=== PATIENT | female | born 1950 | race Caucasian/White ===

== ENCOUNTER 2023-08-14 14:30 | Outpatient (AMB) | payer OTHER, SELFPAY ==
--- NOTE | 2023-08-14 15:10 | MHC.PC.OV ---
Vital Signs 08/14/23 15:19 Height 5 ft 3 in Weight 197 lb BMI 34.9 BP 118/88 Blood Pressure Location Lt brachial Position Sitting Respiration 14 Pulse 64 Pulse Source Pulse Oximeter Temp 99.1 F Temp Source Oral Pulse Oximetry (%) 94 Oxygen Delivery Method Room Air Intake Visit Reasons: Establish Care Intake Note: New patient visit Gold And Silver Assayer Required: No Allergies codeine Allergy (Verified 08/14/23 15:11) itching Tobacco use date assessed: 08/14/23 Fall risk assessment: No Falls in past year Last assessed Fall Risk: 08/14/23 Dental Screening Dental Screen Date: 08/14/23 Did you have a dental visit in the last 12 months?: No Did you have a dental problem in the last 6 months where you did not have access to dental care?: No Was dental information given to patient?: No (Will find one) HPI HPI Comments History of Present Illness Details This is a 73 year old female with a past medical history of anxiety, depression, hypertension, hyperlipidemia, osteoporosis, GERD, OAB presenting to establish care PFSH Family History (Updated 08/14/23 @ 15:13 by Brigitte Clancy CMA) Other FH: mental illness Substance use Social History (Updated 08/14/23 @ 15:13 by Brigitte Clancy CMA) Housing: House Cigarette Packs Per Day: 1 Years Smoked: 4 e-Cigarette/Vaping Use: Never Used Second Hand Smoke Exposure: No service: No Current occupational status: retired Cognitive needs: No Hearing needs: No Vision needs: Yes Questionnaire PHQ-9 Over the last 2 weeks, how often have you been bothered by any of the following problems? 1. Little interest or pleasure in doing things: more than half the days 2. Feeling down, depressed, or hopeless: nearly every day 3. Trouble falling or staying asleep, or sleeping too much: not at all 4. Feeling tired or having little energy: nearly every day 5. Poor appetite or overeating: nearly every day 6. Feeling bad about yourself - or that you are a failure or have let yourself or your family down: not at all 7. Trouble concentrating on things, such as reading the newspaper or watching television: not at all 8. Moving or speaking so slowly that other people could have noticed. Or the opposite - being so fidgety or restless that you have been moving around a lot more than usual: not at all 9. Thoughts that you would be better off or of hurting yourself in some way: not at all Total score: 11 Depression Screening Interpretation: Positive Depression Screening Follow-up: Existing condition Depression Screening Done: Yes 92633 - PHQ-9 Billing: Yes Source: Developed by Drs. Shane Casas, Jessica Lang, Rl Mesa and colleagues, with an educational meron from [email or web address]. Thrive Questionnaire Date Thrive assessed: 08/14/23 I am a: Patient What is your living situation today?: I have a steady place to live Within the past 12 months, did the food you bought not last and you didn't have the money to get more?: Never true Within the past 12 months, did you worry whether your food would run out before you got money to buy more?: Never true Do you have trouble paying for medicines?: No Do you have trouble getting transportation to medical appointments?: No Do you have trouble paying your heating and electricity bill?: No Do you have trouble taking care of your child, family member or friend?: No Do you have trouble with day-to-day activities such as bathing, preparing meals, shopping, managing finances, etc.?: No Are you currently unemployed and looking for a job?: No Are you interested in more education?: No Please select the resources that you would like help with: None Currently or been in a relationship where the following occur: no concerns reported THRIVE Score: 0 AUDIT C Alcohol Use Questionnaire (AUDIT-C) 1. How often do you have a drink containing alcohol?: Never 3. How often do you have six or more drinks on one occasion?: Never Total Score: 0 MALCOLM-7 AMB Questionnaire MALCOLM-7 Date MALCOLM - 7 assessed: 08/14/23 Feeling nervous, anxious, or on edge: 3 = Nearly every day Not being able to stop or control worryin = Nearly every day Worrying too much about different things: 3 = Nearly every day Trouble relaxin = More than half the days Being so restless that it is hard to sit still: 0 = Not at all Becoming easily annoyed or irritable: 0 = Not at all Feeling afraid as if something awful might happen: 0 = Not at all Total MALCOLM-7 score (0-4 normal; 5-9 mild; 10-14 moderate; 15-21 severe): 11 Source: Developed by Drs. Shane Casas, Jessica Lang, Rl Mesa and colleagues, with an educational meron from [email or web address]. MALCOLM-7 Assessment Billing MALCOLM-7 Assessment Tool: MALCOLM-7 Assessment 02244 Review of Systems Const Details: see HPI Physical exam (Primary Care) Vital Signs: Last Vital Signs Temp 99.1 F 08/14/23 15:19 Pulse 64 08/14/23 15:19 Resp 14 08/14/23 15:19 BP 118/88 08/14/23 15:19 Pulse Ox 94 08/14/23 15:19 Oxygen Delivery Method Room Air 08/14/23 15:19 PHYSICAL EXAM: GENERAL: Alert and oriented x 3. NAD EYES: EOMI. Anicteric. HENT: Moist mucous membranes. No scleral icterus. No cervical lymphadenopathy. LUNGS: Clear to auscultation bilaterally. CARDIOVASCULAR: Regular rate and rhythm. No murmur. No JVD. ABDOMEN: Soft, non-tender +bs EXTREMITIES: No edema. Non-tender. SKIN: No rashes or lesions. Warm. NEUROLOGIC: No focal neurological deficits. CN II-XII grossly intact PSYCHIATRIC: Cooperative. Appropriate mood and affect BMI result Body Mass Index 34.9 Tobacco/Smoking Status: Tobacco use Status Tobacco use date assessed 08/14/23 08/14/23 15:22 e-Cigarette/Vaping Use Never Used 08/14/23 15:22 PHQ-9: PHQ-9 Score PHQ-9: Total score 11 08/14/23 16:23 Depression Screening Interpretation: Positive Depression Screening Follow-up: Existing condition Thrive Assessment: Date of Thrive Assessment Date Thrive assessed 08/14/23 08/14/23 16:23 Currently or been in a relationship where the following occur: no concerns reported Assessment and Plan Assessment & Plan (1) Right hip pain: Comment: Referral placed to pain management. start oxycodone ir and ER Code(s): M25.551 - Pain in right hip (2) Low back pain: Code(s): M54.50 - Low back pain, unspecified Qualifiers: Chronicity: unspecified Back pain laterality: unspecified Sciatica presence: unspecified whether sciatica present Qualified Code(s): M54.50 - Low back pain, unspecified Orders: Referrals Pain Management Referral M25.551 - Pain in right hip, M54.50 - Low back pain, unspecified Medications: New oxycodone myristate CR-ER (Xtampza ER) must administer with a meal/food; Partial Fill upon patient request. 9 mg PO BID 56 caps 0RF 28 days oxycodone Partial Fill upon patient request. 5 mg PO Q8H 28 days PRN 84 tabs 0RF pain (scale score 7-10) bupropion HCl XL 300 mg PO QAM 90 tabs 3RF 90 days Coding Level of Care Code Tele New Pt Level 4 (51976) Diagnoses Right hip pain M25.551 Low back pain, unspecified back pain laterality, unspecified chronicity, unspecified whether sciatica present M54.50 Chronicity: unspecified Back pain laterality: unspecified Sciatica presence: unspecified whether sciatica present Additional Codes MALCOLM-7 Assessment Billing - MALCOLM-7 Assessment Tool: MALCOLM-7 Assessment 47621 ([id number])
[2023-08-14 15:19] VITALS: BP 118/88; PULSE 64; RESP 14; TEMP 37.3; O2SAT 94; BMI 34.9
== END 2023-08-14 15:43 | disposition home or self-care (01) ==
PROVIDERS: Visit Provider Internal Medicine
DX: M25.551 Pain in right hip (principal); M54.50 Low back pain, unspecified
CPT/HCPCS: 99204

== ENCOUNTER 2023-09-16 08:52 | Outpatient (AMB) | payer OTHER, SELFPAY ==
--- NOTE | 2023-09-16 09:07 | MHC.PC.OV ---
Vital Signs 09/16/23 09:08 Height 5 ft 3 in Weight 191 lb BMI 33.8 BP 122/70 Blood Pressure Location Lt brachial Position Sitting Pulse 62 Pulse Source Pulse Oximeter Pulse Oximetry (%) 98 Oxygen Delivery Method Room Air Intake Visit Reasons: Medication Review Follow up Intake Note: Follow up. Went to [facility] ER on 09/04/23 Word Processing Supervisor Required: No Allergies codeine Allergy (Verified 09/16/23 09:08) itching Tobacco use date assessed: 08/14/23 Dental Screening Dental Screen Date: 08/14/23 HPI HPI Comments History of Present Illness Details This is a 73 year old female with a past medical history of anxiety, depression, hypertension, hyperlipidemia, osteoporosis, GERD, OAB presenting for follow up Was evaluated at [facility] ER on 09/04/23. She presented with c/o epigastric pain. Also endorsed loss of appetite. CT abd/pelvis-reflux esophagitis versus other process. Recommend correlation patients clinical findings and if indicated additional imaging. Mild descending and sigmoid colitis versus underdistention. she received pepcid and morhpine in the ER with improvement in symptoms. She was given a prescription of pepcid. She says symptoms have resolved Anxiety/depression: Started abilify last visit. No SE however also has not seen noticeable improvement. Continues wellbutrin, is on depakote. Not sleeping well. CV-On diltiazem, furosemide, atovastatin. Denies chest pain, shortness of breath. Chronic pain-Low back, hips, legs. Pending pain management consult. On oxycodone, preferred percocet. Tried to rx xtampza but not covered by insurance. Per records colonoscopy 11/21/2015 ROS see HPI PHYSICAL EXAM: GENERAL: Alert and oriented x 3. NAD EYES: EOMI. Anicteric. HENT: Moist mucous membranes. No scleral icterus. No cervical lymphadenopathy. LUNGS: Clear to auscultation bilaterally. CARDIOVASCULAR: Regular rate and rhythm. No murmur. No JVD. ABDOMEN: Soft, non-tender +bs EXTREMITIES: No edema. Non-tender. SKIN: No rashes or lesions on exposed skin. Warm. NEUROLOGIC: No focal neurological deficits. CN II-XII grossly intact PSYCHIATRIC: Cooperative. Appropriate mood and affect PFSH Family History (Updated 08/14/23 @ 15:13 by Brigitte Clancy CMA) Other FH: mental illness Substance use Social History (Updated 08/14/23 @ 15:13 by Brigitte Clancy CMA) Housing: House Cigarette Packs Per Day: 1 Years Smoked: 4 e-Cigarette/Vaping Use: Never Used Second Hand Smoke Exposure: No service: No Current occupational status: retired Cognitive needs: No Hearing needs: No Vision needs: Yes Questionnaire Thrive Questionnaire Date Thrive assessed: 08/14/23 MALCOLM-7 AMB Questionnaire MALCOLM-7 Date MALCOLM - 7 assessed: 08/14/23 Source: Developed by Drs. Shane Casas, Jessica Lang, Rl Mesa and colleagues, with an educational meron from [employer]. Physical exam (Primary Care) Vital Signs: Last Vital Signs Pulse 62 09/16/23 09:08 BP 122/70 09/16/23 09:08 Pulse Ox 98 09/16/23 09:08 Oxygen Delivery Method Room Air 09/16/23 09:08 BMI result Body Mass Index 33.8 Tobacco/Smoking Status: Tobacco use Status Tobacco use date assessed 08/14/23 09/16/23 09:11 e-Cigarette/Vaping Use Never Used 09/16/23 09:11 Thrive Assessment: Date of Thrive Assessment Date Thrive assessed 08/14/23 09/16/23 09:11 Assessment and Plan Assessment & Plan (1) Hospital discharge follow-up: Code(s): Z09 - Encounter for follow-up examination after completed treatment for conditions other than malignant neoplasm Plan: ER visit reviewed. Imaging reviewed. Patient reports resolution of symptoms. Advised to call if recurrent (2) Low back pain: Code(s): M54.50 - Low back pain, unspecified Qualifiers: Chronicity: unspecified Back pain laterality: unspecified Sciatica presence: unspecified whether sciatica present Qualified Code(s): M54.50 - Low back pain, unspecified (3) Right hip pain: Comment: Referral placed to pain management. start oxycodone ir and ER Code(s): M25.551 - Pain in right hip Plan: Increase frequency/qty of meds-percocet ordered Will need pain contract Pain management pending (4) Major depressive disorder, recurrent, in partial remission: Code(s): F33.41 - Major depressive disorder, recurrent, in partial remission Plan: Tolerating abilify however hasn't benefited. Will increase dose and if still no response will reevaluate Medications: New aripiprazole 10 mg PO BEDTIME 90 tabs 3RF oxycodone-acetaminophen 10-325 mg (Percocet) Partial Fill upon patient request. 1 tab PO BID 28 days PRN 28 tabs 0RF pain 7-10 oxycodone-acetaminophen 10-325 mg (Percocet) Partial Fill upon patient request. 1 tab PO BID 28 days PRN 56 tabs 0RF pain 7-10 famotidine 20 mg PO DAILY 90 tabs 0RF Discontinued oxycodone Partial Fill upon patient request. Discontinued Reason: Doctor's Order 5 mg PO Q6H 7 days PRN 28 tabs 0RF pain (scale score 7-10) M25.551 - Pain in right hip, M54.50 - Low back pain, unspecified aripiprazole Discontinued Reason: Doctor's Order 5 mg PO DAILY 28 tabs 0RF Coding Level of Care Code Est Pt Level 4 (12970) Complex EM visit Add On G2211 Diagnoses Hospital discharge follow-up Z09 Low back pain, unspecified back pain laterality, unspecified chronicity, unspecified whether sciatica present M54.50 Chronicity: unspecified Back pain laterality: unspecified Sciatica presence: unspecified whether sciatica present Right hip pain M25.551 Major depressive disorder, recurrent, in partial remission F33.41
[2023-09-16 09:08] VITALS: BP 122/70; PULSE 62; O2SAT 98; BMI 33.8
== END 2023-09-16 09:46 | disposition home or self-care (01) ==
PROVIDERS: PCP Internal Medicine; Visit Provider Internal Medicine
DX: Z09 Encounter for follow-up examination after completed treatment for conditions other than malignant neoplasm (principal); M54.50 Low back pain, unspecified; M25.551 Pain in right hip; F33.41 Major depressive disorder, recurrent, in partial remission
CPT/HCPCS: 99214; G2211

== ENCOUNTER 2023-11-11 15:42 | Outpatient (AMB) | payer OTHER, SELFPAY ==
[2023-11-11 15:51] VITALS: BP 110/64; PULSE 64; O2SAT 97; BMI 33.7
--- NOTE | 2023-11-11 15:51 | A.OFFPC_ITS ---
Vital Signs 11/11/23 15:51 Height 5 ft 3 in Weight 190 lb BMI 33.7 BP 110/64 Blood Pressure Location Rt brachial Position Sitting Pulse 64 Pulse Source Pulse Oximeter Pulse Oximetry (%) 97 Oxygen Delivery Method Room Air Intake Visit Reasons: f/up depression, pain Intake Note: Patient is here to discuss back pain and follow up for depression. Patient reports concern for constipation. Patient reports she has worsening back pains. Patient reports she needs a new walker- one to help with standing up straighter. Smoking Pipes Cleaner Required: No Accompanied by: Self / Same As Patient Allergies codeine Allergy (Verified 09/16/23 09:08) itching Medication List - Last Reconciled 11/11/23 by Malika Veliz MD albuterol sulfate 90 mcg/actuation 2 puffs PO QID PRN alendronate 70 mg PO QWEEK aripiprazole 10 mg PO BEDTIME atorvastatin 40 mg PO DAILY bupropion HCl XL 300 mg PO DAILY 28 days bupropion HCl XL 150 mg PO DAILY calcium citrate 250 mg PO DAILY diltiazem HCl 60 mg PO BID divalproex 1,000 mg (2 x 500 mg) PO BEDTIME 90 days docusate sodium 100 mg PO DAILY famotidine 20 mg PO DAILY furosemide 20 mg PO BID imiquimod 5% topical nystatin 1 appl topical BID omeprazole 40 mg (2 x 20 mg) PO DAILY oxybutynin chloride ER 10 mg PO DAILY oxycodone-acetaminophen 10-325 mg 1 tab PO TID PRN 28 days trazodone 100 mg PO BEDTIME 28 days Tobacco use date assessed: 08/14/23 Fall risk assessment: No Falls in past year Last assessed Fall Risk: 11/11/23 Dental Screening Dental Screen Date: 08/14/23 HPI HPI Comments History of Present Illness Details This is a 73 year old female with a past medical history of anxiety, depression, hypertension, hyperlipidemia, osteoporosis, GERD, OAB presenting for follow up Was evaluated at [facility] ER on 09/04/23. She presented with c/o epigastric pain. Also endorsed loss of appetite. CT abd/pelvis-reflux esophagitis versus other process. Recommend correlation patients clinical findings and if indicated add itional imaging. Mild descending and sigmoid colitis versus underdistention. she received pepcid and morhpine in the ER with improvement in symptoms. She was given a prescription of pepcid. She says symptoms have resolved Anxiety/depression: Increased abilify last visit-says she has not noticed a great deal of improvement. continues wellbutrin, depakote. CV-On diltiazem, furosemide, atovastatin. Denies chest pain, shortness of breath. Chronic pain-Low back, hips, legs. Pending pain management consult. On percocet. Works to diminish pain but does not last between doses. Tried to rx xtampza but not covered by insurance. In WC today. Would walk more but needs help with balance, weakness and needs to stop to rest. Per records colonoscopy 11/21/2015 ROS see HPI PHYSICAL EXAM: GENERAL: Alert and oriented x 3. NAD. In WC EYES: EOMI. Anicteric. HENT: Moist mucous membranes. No scleral icterus. No cervical lymphadenopathy. LUNGS: Clear to auscultation bilaterally. CARDIOVASCULAR: Regular rate and rhythm. No murmur. No JVD. ABDOMEN: Soft, non-tender +bs EXTREMITIES: No edema. Non-tender. SKIN: No rashes or lesions on exposed skin. Warm. NEUROLOGIC: Generalized weakness. CN II-XII grossly intact PSYCHIATRIC: Cooperative. Appropriate mood and affect PFSH Family History Other FH: mental illness Substance use Social History Housing: House Patient Tobacco Use Status: Current everyday Tobacco user Cigarette Packs Per Day: 1 Years Smoked: 4 e-Cigarette/Vaping Use: Never Used Second Hand Smoke Exposure: No service: No Current occupational status: retired Cognitive needs: No Hearing needs: No Vision needs: Yes Questionnaire Thrive Questionnaire Date Thrive assessed: 08/14/23 MALCOLM-7 AMB Questionnaire MALCOLM-7 Date MALCOLM - 7 assessed: 08/14/23 Source: Developed by Drs. Shane Casas, Jessica Lang, Rl Mesa and colleagues, with an educational meron from [employer]. Physical exam (Primary Care) Vital Signs: Last Vital Signs Pulse 64 11/11/23 15:51 BP 110/64 11/11/23 15:51 Pulse Ox 97 11/11/23 15:51 Oxygen Delivery Method Room Air 11/11/23 15:51 BMI result Body Mass Index 33.7 Tobacco/Smoking Status: Tobacco use Status Tobacco use date assessed 08/14/23 11/11/23 15:57 Patient Tobacco Use Status Current everyday Tobacco 11/11/23 15:57 e-Cigarette/Vaping Use Never Used 11/11/23 15:57 Thrive Assessment: Date of Thrive Assessment Date Thrive assessed 08/14/23 11/11/23 15:57 Assessment and Plan Assessment & Plan (1) Major depressive disorder, recurrent, in partial remission: Code(s): F33.41 - Major depressive disorder, recurrent, in partial remission Plan: stable. (2) Hospital discharge follow-up: Code(s): Z09 - Encounter for follow-up examination after completed treatment for conditions other than malignant neoplasm (3) Anxiety: Code(s): F41.9 - Anxiety disorder, unspecified (4) Low back pain: Code(s): M54.50 - Low back pain, unspecified Qualifiers: Back pain laterality: unspecified Chronicity: unspecified Sciatica presence: unspecified whether sciatica present Qualified Code(s): M54.50 - Low back pain, unspecified (5) Right hip pain: Code(s): M25.551 - Pain in right hip Plan: Pending pain management referral. Increased medications from twice daily to three times daily as needed. Generalized weakness. Needs PT Orders: Referrals Home Health Referral R53.1 - Weakness, M54.50 - Low back pain, unspecified, M25.551 - Pain in right hip Medications: Changed From oxycodone-acetaminophen 10-325 mg 1 tab PO BID 28 days PRN 56 tabs 0RF pain To oxycodone-acetaminophen 10-325 mg 1 tab PO TID PRN 84 tabs 0RF pain 28 days Coding Level of Care Code Est Pt Level 4 (94808) Complex EM visit Add On G2211 Diagnoses Major depressive disorder, recurrent, in partial remission F33.41 Hospital discharge follow-up Z09 Anxiety F41.9 Low back pain, unspecified back pain laterality, unspecified chronicity, unspecified whether sciatica present M54.50 Back pain laterality: unspecified Chronicity: unspecified Sciatica presence: unspecified whether sciatica present Right hip pain M25.551
== END 2023-11-11 16:20 | disposition home or self-care (01) ==
LOC: HO.HMGFM 15:42
PROVIDERS: PCP Internal Medicine; Visit Provider Internal Medicine
DX: F33.41 Major depressive disorder, recurrent, in partial remission (principal); Z09 Encounter for follow-up examination after completed treatment for conditions other than malignant neoplasm; F41.9 Anxiety disorder, unspecified; M54.50 Low back pain, unspecified; M25.551 Pain in right hip
CPT/HCPCS: 99214; G2211

== ENCOUNTER 2023-12-05 15:43 | Outpatient (AMB) | payer OTHER, SELFPAY ==
--- NOTE | 2023-12-05 15:50 | A.OFFPC_ITS ---
Vital Signs 12/05/23 15:53 BMI Reason not done Patient refused/unable Respiration 12 Pulse 46 L Pulse Source Pulse Oximeter Pulse Oximetry (%) 95 Oxygen Delivery Method Room Air Intake Visit Reasons: medication review Intake Note: Patient is here with her family and reports her anxiety is still uncontrolled. Patient reports what was given before for anxiety isnt helping. Patient reports she takes trazadone for sleep and feels like 1 more pill would help for sleeping. Patient states her pain is doing better since the medication increased. Nutrition Representative Required: No Accompanied by: Family/Other Allergies codeine Allergy (Verified 12/05/23 15:52) itching Tobacco use date assessed: 08/14/23 Dental Screening Dental Screen Date: 08/14/23 HPI HPI Comments History of Present Illness Details This is a 73 year old female with a past medical history of anxiety, depression, hypertension, hyperlipidemia, osteoporosis, GERD, OAB presenting for follow up Chronic pain-Low back, hips, legs. Pending pain management consult. On percocet- increased at last visit. Tried to rx xtampza but not covered by insurance. In WC. Would walk more but needs help with balance, weakness and needs to stop to rest. Was evaluated at [facility] ER on 09/04/23. She presented with c/o epigastric pain. Also endorsed loss of appetite. CT abd/pelvis-reflux esophagitis versus other process. Recommend correlation patients clinical findings and if indicated additional imaging. Mild descending and sigmoid colitis versus underdistention. she received pepcid and morhpine in the ER with improvement in symptoms. She was given a prescription of pepcid. She says symptoms have resolved Anxiety/depression: On abilify, wellbutrin, depakote. Started propranolol for social anxiety, traveling CV-On diltiazem, furosemide, atovastatin. Denies chest pain, shortness of breath. Per records colonoscopy 11/21/2015 ROS see HPI PHYSICAL EXAM: GENERAL: Alert and oriented x 3. NAD. In WC EYES: EOMI. Anicteric. HENT: Moist mucous membranes. No scleral icterus. No cervical lymphadenopathy. LUNGS: Clear to auscultation bilaterally. CARDIOVASCULAR: Regular rate and rhythm. No murmur. No JVD. ABDOMEN: Soft, non-tender +bs EXTREMITIES: No edema. Non-tender. SKIN: No rashes or lesions on exposed skin. Warm. NEUROLOGIC: Generalized weakness. CN II-XII grossly intact PSYCHIATRIC: Cooperative. Appropriate mood and affect PFSH Family History Other FH: mental illness Substance use Social History Housing: House Patient Tobacco Use Status: Current everyday Tobacco user Cigarette Packs Per Day: 1 Years Smoked: 4 e-Cigarette/Vaping Use: Never Used Second Hand Smoke Exposure: No service: No Current occupational status: retired Cognitive needs: No Hearing needs: No Vision needs: Yes Questionnaire Thrive Questionnaire Date Thrive assessed: 08/14/23 MALCOLM-7 AMB Questionnaire MALCOLM-7 Date MALCOLM - 7 assessed: 08/14/23 Source: Developed by Drs. Shane Casas, Jessica Lang, Rl Mesa and colleagues, with an educational meron from [employer] Physical exam (Primary Care) Vital Signs: Last Vital Signs Pulse 46 L 12/05/23 15:53 Resp 12 12/05/23 15:53 Pulse Ox 95 12/05/23 15:53 Oxygen Delivery Method Room Air 12/05/23 15:53 Tobacco/Smoking Status: Tobacco use Status Tobacco use date assessed 08/14/23 12/05/23 15:54 Patient Tobacco Use Status Current everyday Tobacco 12/05/23 15:54 e-Cigarette/Vaping Use Never Used 12/05/23 15:54 Thrive Assessment: Date of Thrive Assessment Date Thrive assessed 08/14/23 12/05/23 15:54 Assessment and Plan Assessment & Plan (1) Low back pain: Code(s): M54.50 - Low back pain, unspecified Qualifiers: Back pain laterality: unspecified Chronicity: unspecified Sciatica presence: unspecified whether sciatica present Qualified Code(s): M54.50 - Low back pain, unspecified Plan: Given number for pain management referral previously placed Continue current medications PT ordered (2) Right hip pain: Code(s): M25.551 - Pain in right hip (3) Major depressive disorder, recurrent, in partial remission: Code(s): F33.41 - Major depressive disorder, recurrent, in partial remission Plan: Stable, suboptimal control. Orders: Referrals Gastroenterology Referral R12 - Heartburn Medications: New trazodone 150 mg (3 x 50 mg) PO BEDTIME PRN 270 tabs 1RF sleep 90 days walker walker with seat 1 ea 0RF R53.1 - Weakness, M54.50 - Low back pain, unspecified, M25.551 - Pain in right hip Changed From famotidine 20 mg PO DAILY 90 tabs 0RF To famotidine 20 mg PO DAILY PRN 90 tabs 0RF acute heartburn 90 days From propranolol 20 mg PO BID 60 tabs 3RF F41.9 - Anxiety disorder, unspecified To propranolol 20 mg PO .every 8 hours PRN 90 tabs 3RF anxiety 90 days F41.9 - Anxiety disorder, unspecified Coding Level of Care Code Est Pt Level 4 (50675) Diagnoses Low back pain, unspecified back pain laterality, unspecified chronicity, unspecified whether sciatica present M54.50 Back pain laterality: unspecified Chronicity: unspecified Sciatica presence: unspecified whether sciatica present Right hip pain M25.551 Major depressive disorder, recurrent, in partial remission F33.41
[2023-12-05 15:53] VITALS: PULSE 46; RESP 12; O2SAT 95
== END 2023-12-05 16:29 | disposition home or self-care (01) ==
PROVIDERS: PCP Internal Medicine; Visit Provider Internal Medicine
DX: M54.50 Low back pain, unspecified (principal); M25.551 Pain in right hip; F33.41 Major depressive disorder, recurrent, in partial remission
CPT/HCPCS: 99214

== ENCOUNTER 2024-01-19 09:24 | Outpatient (AMB) | payer OTHER, SELFPAY ==
[2024-01-19 09:26] VITALS: BP 128/72; PULSE 60; TEMP 36.8; O2SAT 95; BMI 31.7
--- NOTE | 2024-01-19 09:26 | MHC.PC.OV ---
Vital Signs 01/19/24 09:26 Height 5 ft 3 in Weight 179 lb BMI 31.7 BP 128/72 Blood Pressure Location Lt brachial Position Sitting Pulse 60 Pulse Source Pulse Oximeter Temp 98.3 F Temp Source Oral Pulse Oximetry (%) 95 Oxygen Delivery Method Room Air Intake Visit Reasons: Sore - throat -- Cough Intake Note: Pt presents to the office today for c/o congestion, and a cough for about 3 weeks. Allergies codeine Allergy (Verified 01/19/24 09:32) itching Tobacco use date assessed: 01/19/24 Fall risk assessment: No Falls in past year Last assessed Fall Risk: 01/19/24 Dental Screening Dental Screen Date: 01/19/24 Did you have a dental visit in the last 12 months?: No Did you have a dental problem in the last 6 months where you did not have access to dental care?: No Was dental information given to patient?: Patient has dentist HPI HPI Comments History of Present Illness Details This is a 73 year old female with a past medical history of anxiety, depression, hypertension, hyperlipidemia, osteoporosis, GERD, OAB presenting for cough. She is accompanied as usual by her and son She reports cough for the past 3 weeks. +sinus congestion. Cough is more junky in morning. Has felt more tired but not sleeping well 2/2 cough. No increased LE edema Chronic pain-Low back, hips, legs. Had pain management referral-was missing their calls. On percocet-increased at last visit. Tried to rx xtampza but not covered by insurance. In WC. Would walk more but needs help with balance, weakness and needs to stop to rest. Was referred for PT Was evaluated at [facility] ER on 09/04/23. She presented with c/o epigastric pain. Also endorsed loss of appetite. CT abd/pelvis-reflux esophagitis versus other process. Recommend correlation patients clinical findings and if indicated additional imaging. Mild descending and sigmoid colitis versus underdistention. she received pepcid and morhpine in the ER and continued outpatient pepcid. She is reluctant to follow up as recommended. Anxiety/depression: On abilify, wellbutrin, depakote. Started propranolol for social anxiety, traveling CV-On diltiazem, furosemide, atovastatin. Denies chest pain, shortness of breath. Per records colonoscopy 11/21/2015 ROS see HPI PHYSICAL EXAM: GENERAL: Alert and oriented x 3. NAD. In WC EYES: EOMI. Anicteric. HENT: Moist mucous membranes. Boggy nasal mucosa. Mild ttp maxillary sinuses LUNGS: Good air entry bilaterally, increased exp phase, minimal rhonci, no wheezing CARDIOVASCULAR: Regular rate and rhythm. ABDOMEN: Soft, non-tender +bs EXTREMITIES: No edema. Non-tender. SKIN: No rashes or lesions on exposed skin. Warm. NEUROLOGIC: Generalized weakness. CN II-XII grossly intact PSYCHIATRIC: Cooperative. Appropriate mood and affect PFSH Family History Other FH: mental illness Substance use Social History (Updated 01/19/24 @ 09:33 by Adrianne Mckay CMA) Housing: House Patient Tobacco Use Status: Former Tobacco user Cigarette Packs Per Day: 1 Years Smoked: 4 e-Cigarette/Vaping Use: Never Used Second Hand Smoke Exposure: No service: No Current occupational status: retired Cognitive needs: No Hearing needs: No Vision needs: Yes Questionnaire Thrive Questionnaire Date Thrive assessed: 01/19/24 I am a: Patient What is your living situation today?: I have a steady place to live Within the past 12 months, did the food you bought not last and you didn't have the money to get more?: Never true Within the past 12 months, did you worry whether your food would run out before you got money to buy more?: Never true Do you have trouble paying for medicines?: No Do you have trouble getting transportation to medical appointments?: No Do you have trouble paying your heating and electricity bill?: No Do you have trouble taking care of your child, family member or friend?: No Do you have trouble with day-to-day activities such as bathing, preparing meals, shopping, managing finances, etc.?: No Are you currently unemployed and looking for a job?: No Are you interested in more education?: No Please select the resources that you would like help with: None THRIVE Score: 0 AUDIT C Alcohol Use Questionnaire (AUDIT-C) 1. How often do you have a drink containing alcohol?: Never 3. How often do you have six or more drinks on one occasion?: Never Total Score: 0 MALCOLM-7 AMB Questionnaire MALCOLM-7 Date MALCOLM - 7 assessed: 01/19/24 Feeling nervous, anxious, or on edge: 3 = Nearly every day Not being able to stop or control worryin = Nearly every day Worrying too much about different things: 3 = Nearly every day Trouble relaxin = More than half the days Being so restless that it is hard to sit still: 0 = Not at all Becoming easily annoyed or irritable: 0 = Not at all Feeling afraid as if something awful might happen: 0 = Not at all Total MALCOLM-7 score (0-4 normal; 5-9 mild; 10-14 moderate; 15-21 severe): 11 Source: Developed by Drs. Shane Casas, Jessica Lang, Rl Mesa and colleagues, with an educational meron from [employer]. MALCOLM-7 Assessment Billing MALCOLM-7 Assessment Tool: MALCOLM-7 Assessment 44688 Physical exam (Primary Care) Vital Signs: Last Vital Signs Temp 98.3 F 01/19/24 09:26 Pulse 60 01/19/24 09:26 BP 128/72 01/19/24 09:26 Pulse Ox 95 01/19/24 09:26 Oxygen Delivery Method Room Air 01/19/24 09:26 BMI result Body Mass Index 31.7 Tobacco/Smoking Status: Tobacco use Status Tobacco use date assessed 01/19/24 01/19/24 09:37 Patient Tobacco Use Status Former Tobacco user 01/19/24 09:37 e-Cigarette/Vaping Use Never Used 01/19/24 09:37 Thrive Assessment: Date of Thrive Assessment Date Thrive assessed 01/19/24 01/19/24 09:37 Coding Level of Care Code Est Pt Level 4 (56612) Diagnoses Subacute maxillary sinusitis J01.00 Chronicity: subacute Sinusitis location: maxillary Additional Codes MALCOLM-7 Assessment Billing - MALCOLM-7 Assessment Tool: MALCOLM-7 Assessment 43795 ([id number]) Assessment & Plan Assessment & Plan (1) Sinusitis: Code(s): J32.9 - Chronic sinusitis, unspecified Category: Medical Qualifiers: Chronicity: subacute Sinusitis location: maxillary Qualified Code(s): J01.00 - Acute maxillary sinusitis, unspecified Plan: Start doxycycline, tessalon perles If no improved or persistent symptoms call the office. Medications: New doxycycline hyclate 100 mg PO .twice daily 14 tabs 0RF 7 days benzonatate 100 mg PO BID 14 caps 0RF 7 days
== END 2024-01-19 09:50 | disposition home or self-care (01) ==
PROVIDERS: PCP Internal Medicine; Visit Provider Internal Medicine
DX: J01.00 Acute maxillary sinusitis, unspecified (principal)

== ENCOUNTER → 2024-01-19 09:24 | Outpatient (BNVA) | payer OTHER, SELFPAY | PROVIDERS: PCP Internal Medicine; Visit Provider Internal Medicine | DX: J01.00 Acute maxillary sinusitis, unspecified (principal) | CPT/HCPCS: 96127; 99212 ==

== ENCOUNTER → 2024-03-01 15:05 | Outpatient (AMB) | payer OTHER, SELFPAY ==
--- NOTE | 2024-03-01 15:13 | A.OFFVIS_ITS ---
Vital Signs 03/01/24 15:14 Height 5 ft 3 in Weight 173 lb BMI 30.6 BP 141/65 H Blood Pressure Location Rt brachial Position Sitting Pulse 46 L Intake Visit Reasons: Gastroesophageal reflux disease (GERD) Intake Note: January presents in the office as a new patient for GERD. CC: She state she does not eat very well - loss of appetite. She states that she is unable to eat unless she smokes marijuana. No pains in the stomach, she gets some constipation. When she does have a BM its loose. 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 Accompanied by ex- and son. Pt reports persistent nausea for the past 4-5 years assoc with low appetite and early satiety. Pt also reports occ vomiting which is non bloody and non bilious. Has lost almost 40 lbs in the last year. This is corroborated in [facility] as well (20 lbs weight loss since July 2023) Pt has been afraid of seeing a provider for this due to fear tube in mouth . Was eventually seen in ER earlier this year - CT Abd/pel suggestive of esophagitis. Images not available for review. Of note - HR noted to be erratic and low on exam today. Last colo 2016 at [facility] [place]. Does not think had polyps. PFSH Family History Other FH: mental illness Substance use Social History Housing: House Patient Tobacco Use Status: Former Tobacco user Cigarette Packs Per Day: 1 Years Smoked: 4 e-Cigarette/Vaping Use: Never Used Second Hand Smoke Exposure: No service: No Current occupational status: retired Cognitive needs: No Hearing needs: No Vision needs: Yes Review of Systems Const All systems reviewed & are unremarkable except as noted in HPI and below Physical Exam Vital Signs: Last Vital Signs Pulse 46 L 03/01/24 15:14 BP 141/65 H 03/01/24 15:14 BMI result Body Mass Index 30.6 No apparent distress Nonicteric Bradycardiac and irregular pulse Abdomen soft, nondistended Alert and oriented x3, normal gait Assessment & Plan Assessment & Plan (1) Dysphagia: Code(s): R13.10 - Dysphagia, unspecified Category: Medical (2) Unintentional weight loss: Code(s): R63.4 - Abnormal weight loss Category: Medical (3) Bradycardia: Code(s): R00.1 - Bradycardia, unspecified Category: Medical (4) Esophagitis: Code(s): K20.90 - Esophagitis, unspecified without bleeding Category: Medical Plan Reviewed with the pt that persistent dysphagia, early satiety with dramatic weight loss is concerning for possible malignancy. Other ddx include peptic stricture, severe esophagitis, PUD, dysmotility. Plan: - Start omeprazole 20 BID for possible esophagitis noted on CT abd/pel at [facility] [place] - Barium swallow - CT Chest to r/o psuedoachalasia given age - Urgent EGD to be booked - Labs ordered for w/up of unintentional weight loss - Pt noted to have irregular rhythm and slow HR on exam today and will need to get a pre-procedure clearance and possible EKG through PCP office Follow up after EGD Orders: Orders Basic Metabolic Panel Today R63.4 - Abnormal weight loss Hepatitis B Core Antibody Today R63.4 - Abnormal weight loss Hepatitis B Surface Antibody Today R63.4 - Abnormal weight loss Hepatitis C Antibody Today R63.4 - Abnormal weight loss [place] barium swallow Today R13.10 - Dysphagia, unspecified, R63.4 - Abnormal weight loss CT chest w IV con Today R13.10 - Dysphagia, unspecified, R63.4 - Abnormal weight loss Complete Blood Count no Diff Today R63.4 - Abnormal weight loss Hepatitis A IgG Today R63.4 - Abnormal weight loss HIV Ab/Ag Today R63.4 - Abnormal weight loss Medications: New omeprazole 20 mg PO BID 90 days 180 caps 0RF Refilled aripiprazole 10 mg PO BEDTIME 90 tabs 3RF Coding Level of Care Code New Pt Level 5 (69396) Complex EM visit Add On G2211 Diagnoses Dysphagia R13.10 Unintentional weight loss R63.4 Bradycardia R00.1 Esophagitis K20.90
[2024-03-01 15:14] VITALS: BP 141/65; PULSE 46; BMI 30.6
== END ==
PROVIDERS: PCP Internal Medicine; Visit Provider Internal Medicine
DX: R13.10 Dysphagia, unspecified (principal); R63.4 Abnormal weight loss; K20.90 Esophagitis, unspecified without bleeding; R00.1 Bradycardia, unspecified
CPT/HCPCS: 99204; G2211

== ENCOUNTER → 2024-03-01 15:05 | Outpatient (BNVA) | payer OTHER, SELFPAY | PROVIDERS: PCP Internal Medicine; Visit Provider Internal Medicine | DX: R13.10 Dysphagia, unspecified (principal); R63.4 Abnormal weight loss; R00.1 Bradycardia, unspecified; K20.90 Esophagitis, unspecified without bleeding | CPT/HCPCS: 99202 ==

== ENCOUNTER 2024-03-08 15:36 | Outpatient (AMB) | payer OTHER, SELFPAY ==
[2024-03-08 15:39] VITALS: BP 132/80; PULSE 62; O2SAT 94
--- NOTE | 2024-03-08 15:39 | MHC.PC.OV ---
Vital Signs 03/08/24 15:39 Height 5 ft 3 in BMI Reason not done Patient refused/unable BP 132/80 Blood Pressure Location Rt brachial Position Sitting Pulse 62 Pulse Source Pulse Oximeter Pulse Oximetry (%) 94 Oxygen Delivery Method Room Air Intake Visit Reasons: f/up Allergies codeine Allergy (Verified 03/08/24 15:44) itching Tobacco use date assessed: 01/19/24 Fall risk assessment: No Falls in past year Last assessed Fall Risk: 03/08/24 Dental Screening Dental Screen Date: 03/08/24 Did you have a dental visit in the last 12 months?: No Did you have a dental problem in the last 6 months where you did not have access to dental care?: No Was dental information given to patient?: Patient has dentist HPI HPI Comments History of Present Illness Details This is a 73 year old female with a past medical history of anxiety, depression, hypertension, hyperlipidemia, osteoporosis, GERD, OAB presenting for cough. She is accompanied by her and son Chronic pain-Low back, hips, legs. Had pain management referral-visit scheduled On percocet-increased at last visit. Tried to rx xtampza but not covered by insurance. In WC. Would walk more but needs help with balance, weakness and needs to stop to rest. Was referred for PT GI: Saw GI recently-who noted persistent dysphagia, early satiety with dramatic weight loss is concerning for possible malignancy. Other ddx include peptic stricture, severe esophagitis, PUD, dysmotility. Start omeprazole 20 BID for possible esophagitis noted on CT abd/pel at [facility] [place]. Barium swallow. CT Chest to r/o psuedoachalasia given age. Urgent EGD to be booked. She was noted during the visit to have irregular rhythm and slow HR on exam. Was evaluated at [facility] ER on 09/04/23. She presented with c/o epigastric pain. Also endorsed loss of appetite. CT abd/pelvis-reflux esophagitis versus other process. Recommend correlation patients clinical findings and if indicated additional imaging. Mild descending and sigmoid colitis versus underdistention. she received pepcid and morhpine in the ER and continued outpatient pepcid. She is reluctant to follow up as recommended. Anxiety/depression: On abilify, wellbutrin, depakote. Started propranolol for social anxiety, traveling CV-On diltiazem, furosemide, atovastatin. Denies chest pain, shortness of breath. Per records colonoscopy 11/21/2015 ROS see HPI Buttock pain PHYSICAL EXAM: GENERAL: Alert and oriented x 3. NAD. In WC EYES: EOMI. Anicteric. HENT: Moist mucous membranes. Boggy nasal mucosa. Mild ttp maxillary sinuses LUNGS: Good air entry bilaterally, increased exp phase, minimal rhonci, no wheezing CARDIOVASCULAR: Regular rate and rhythm. ABDOMEN: Soft, non-tender +bs EXTREMITIES: No edema. Non-tender. SKIN: Minimal skin breakdown gluteal cleft NEUROLOGIC: Generalized weakness. CN II-XII grossly intact PSYCHIATRIC: Cooperative. Appropriate mood and affect [facility] Medical History (Updated 03/08/24 @ 16:05 by Malika Veliz MD) Bradycardia Family History Other FH: mental illness Substance use Social History Housing: House Patient Tobacco Use Status: Former Tobacco user Cigarette Packs Per Day: 1 Years Smoked: 4 e-Cigarette/Vaping Use: Never Used Second Hand Smoke Exposure: No service: No Current occupational status: retired Cognitive needs: No Hearing needs: No Vision needs: Yes Questionnaire PHQ-9 Over the last 2 weeks, how often have you been bothered by any of the following problems? 1. Little interest or pleasure in doing things: more than half the days 2. Feeling down, depressed, or hopeless: nearly every day 3. Trouble falling or staying asleep, or sleeping too much: not at all 4. Feeling tired or having little energy: nearly every day 5. Poor appetite or overeating: nearly every day 6. Feeling bad about yourself - or that you are a failure or have let yourself or your family down: not at all 7. Trouble concentrating on things, such as reading the newspaper or watching television: not at all 8. Moving or speaking so slowly that other people could have noticed. Or the opposite - being so fidgety or restless that you have been moving around a lot more than usual: not at all 9. Thoughts that you would be better off or of hurting yourself in some way: not at all Total score: 11 Depression Screening Interpretation: Positive Depression Screening Follow-up: Existing condition Depression Screening Done: Yes Source: Developed by Drs. Shane Casas, Jessica Lang, Rl Mesa and colleagues, with an educational meron from [employer]. Thrive Questionnaire Date Thrive assessed: 01/19/24 I am a: Patient What is your living situation today?: I have a steady place to live Within the past 12 months, did the food you bought not last and you didn't have the money to get more?: Never true Within the past 12 months, did you worry whether your food would run out before you got money to buy more?: Never true Do you have trouble paying for medicines?: No Do you have trouble getting transportation to medical appointments?: No Do you have trouble paying your heating and electricity bill?: No Do you have trouble taking care of your child, family member or friend?: No Do you have trouble with day-to-day activities such as bathing, preparing meals, shopping, managing finances, etc.?: No Are you currently unemployed and looking for a job?: No Are you interested in more education?: No Please select the resources that you would like help with: None THRIVE Score: 0 AUDIT C Alcohol Use Questionnaire (AUDIT-C) 1. How often do you have a drink containing alcohol?: Never 3. How often do you have six or more drinks on one occasion?: Never Total Score: 0 MALCOLM-7 AMB Questionnaire MALCOLM-7 Date MALCOLM - 7 assessed: 01/19/24 Feeling nervous, anxious, or on edge: 3 = Nearly every day Not being able to stop or control worryin = Nearly every day Worrying too much about different things: 3 = Nearly every day Trouble relaxin = More than half the days Being so restless that it is hard to sit still: 0 = Not at all Becoming easily annoyed or irritable: 0 = Not at all Feeling afraid as if something awful might happen: 0 = Not at all Total MALCOLM-7 score (0-4 normal; 5-9 mild; 10-14 moderate; 15-21 severe): 11 Source: Developed by Drs. Shane Casas, Jessica Lang, Rl Mesa and colleagues, with an educational meron from [employer]. Physical exam (Primary Care) Vital Signs: Last Vital Signs Pulse 62 03/08/24 15:39 BP 132/80 03/08/24 15:39 Pulse Ox 94 03/08/24 15:39 Oxygen Delivery Method Room Air 03/08/24 15:39 Tobacco/Smoking Status: Tobacco use Status Tobacco use date assessed 01/19/24 03/08/24 15:46 Patient Tobacco Use Status Former Tobacco user 03/08/24 15:46 e-Cigarette/Vaping Use Never Used 03/08/24 15:46 PHQ-9: PHQ-9 Score PHQ-9: Total score 11 03/08/24 15:51 Depression Screening Interpretation: Positive Depression Screening Follow-up: Existing condition Thrive Assessment: Date of Thrive Assessment Date Thrive assessed 01/19/24 03/08/24 15:46 Coding Level of Care Code Est Pt Level 5 (55663) Diagnoses Pre-op evaluation Z01.818 Unintentional weight loss R63.4 Bradycardia R00.1 Time Spent (min) 55 Assessment & Plan Assessment & Plan (1) Pre-op evaluation: Code(s): Z01.818 - Encounter for other preprocedural examination Category: Medical Plan: No increased shortness of breath METS<4. EKG with sinus bradycardia She is a higher risk patient for low risk surgery Given low exercise capacity and bradycardia further cardiac work up could be considered but weighed against the urgency of endoscopy as she is having no cardiac symptoms and no ischemic changes on EKG (2) Unintentional weight loss: Code(s): R63.4 - Abnormal weight loss Category: Medical Plan: see above (3) Bradycardia: Code(s): R00.1 - Bradycardia, unspecified Category: Medical Plan: referral to cardiology placed Orders: Orders Vitamin B12 and Folate 03/08/24 R13.10 - Dysphagia, unspecified, R00.1 - Bradycardia, unspecified, K20.90 - Esophagitis, unspecified without bleeding IRON PROFILE 03/08/24 R13.10 - Dysphagia, unspecified, R00.1 - Bradycardia, unspecified, K20.90 - Esophagitis, unspecified without bleeding TSH reflex Free T4 03/08/24 R13.10 - Dysphagia, unspecified, R00.1 - Bradycardia, unspecified, K20.90 - Esophagitis, unspecified without bleeding AMB EKG-In Office 03/08/24 R00.1 - Bradycardia, unspecified Referrals Cardiology Referral Z01.818 - Encounter for other preprocedural examination, R00.1 - Bradycardia, unspecified
== END 2024-03-08 16:14 | disposition home or self-care (01) ==
PROVIDERS: PCP Internal Medicine; Visit Provider Internal Medicine
DX: R00.1 Bradycardia, unspecified (principal); Z01.818 Encounter for other preprocedural examination; R63.4 Abnormal weight loss

== ENCOUNTER → 2024-03-08 15:36 | Outpatient (BNVA) | payer OTHER, SELFPAY | PROVIDERS: PCP Internal Medicine; Visit Provider Internal Medicine | DX: Z01.818 Encounter for other preprocedural examination (principal); R63.4 Abnormal weight loss; R00.1 Bradycardia, unspecified; I10 Essential (primary) hypertension; F41.8 Other specified anxiety disorders; Z79.899 Other long term (current) drug therapy | CPT/HCPCS: 96127; 99212 ==

== ENCOUNTER 2024-03-17 15:11 | Outpatient (REF) | payer OTHER, SELFPAY ==
[2024-03-17 17:40] LABS: Hematocrit 45.8 % (37.0-47.0); Hemoglobin 15.4 g/dl (12.0-16.0); Mean Corpuscular HGB Conc 33.6 g/dl (31.0-35.0); Mean Corpuscular Volume 89.1 fL (80.0-98.0); Mean Platelet Volume 9.8 fL (9.4-12.3); Platelet Count 250 X10*3/uL (160-400); Red Blood Count 5.14 X10*6/uL (4.20-5.50); Red Cell Distribution Width 13.2 % (11.0-16.0); White Blood Count 7.7 X10*3/uL (4.8-10.8)
[2024-03-17 17:58] LABS: Anion Gap 13 (12-20); Blood Urea Nitrogen 8 mg/dL (9-16); Calcium 9.4 mg/dL (8.4-10.2); Carbon Dioxide 27 mmol/L (22-29); Chloride 105 mmol/L (96-108); Estimated Glomerular Filt Rate > 60; Glucose Random 94 mg/dL (60-115); Iron 95 mcg/dL (30-160); Percent Iron Saturation 37 % (15-50); Potassium 3.8 mmol/L (3.3-5.1); Sodium 141 mmol/L (135-145); Total Iron Binding Capacity 256 mcg/dL (228-428); Unsaturated Iron Binding 161 ug/dL
[2024-03-17 18:06] LABS: TSH reflex Free T4 1.17 uIU/mL (0.32-4.0)
[2024-03-17 18:20] LABS: Folate 5.1 ng/mL (> or = 4.0); Vitamin B12 376 pg/mL (200-900)
[2024-03-18 04:41] LABS: Hepatitis A Antibody IgG Nonreactive (Nonreactive); ~Hepatitis A Antibody IgG 0.41 S/CO (0.00-0.99)
[2024-03-18 04:42] LABS: HBS Num1 0.54 mIU/mL (0-7.99); HBc Num1 0.14 S/CO (0.00-0.79); HIV AB/AG Nonreactive (Nonreactive); HIV Num 1 0.06 S/CO (0.00-0.99); Hepatitis B Core Antibody Nonreactive (Nonreactive); ~HepC Num1 0.08 S/CO (0.00-0.79); ~Hepatitis B Surface Antibody NONREACTIVE (Nonreactive); ~Hepatitis C Antibody Nonreactive (Nonreactive)
== END 2024-03-17 15:12 | disposition home or self-care (01) ==
LOC: HO.WFDLDS 15:11
PROVIDERS: Referring Provider Internal Medicine; Visit Provider Internal Medicine
DX: R63.4 Abnormal weight loss (principal); R13.10 Dysphagia, unspecified; R00.1 Bradycardia, unspecified; K20.90 Esophagitis, unspecified without bleeding
CPT/HCPCS: 36415; 80048; 82607; 82746; 83540; 84443; 85027; 86704; 86706; 86708; 86803; 87389

== ENCOUNTER 2024-04-06 15:34 | Outpatient (AMB) | payer MEDICARE, MEDICAID, SELFPAY ==
--- NOTE | 2024-04-06 15:35 | A.OFFPC_ITS ---
Vital Signs 04/06/24 15:38 Height 5 ft 3 in BMI Reason not done Patient refused/unable BP 132/72 Blood Pressure Location Lt brachial Position Sitting Respiration 13 Pulse 67 Pulse Source Pulse Oximeter Pulse Oximetry (%) 95 Oxygen Delivery Method Room Air Intake Visit Reasons: Bedsore Lower Back Intake Note: Patient complaining of bedsore on lower back a few months but getting worse. 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 Had pain management referral-visit scheduled On percocet-increased at last visit. Tried to rx xtampza but not covered by insurance. In WC. Can stand and support weight for short periods with arms. Would walk more but needs help with balance, weakness and needs to stop to rest. Was referred for physical therapy. Has developed a sacral wounds with surrounding erythema-says scant bleeding from time to time. Painful. Not doing much to offload pressure. 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 Other ddx include peptic stri cture, severe esophagitis, PUD, dysmotility. Start omeprazole 20 BID for possible esophagitis noted on CT abd/pel at [facility]. Barium swallow. CT Chest to r/o psuedoachalasia given age. Urgent EGD to be booked. She was noted during the visit to have irregular rhythm and slow HR on exam. Was evaluated at [facility] ER on 09/04/23. She presented with c/o epigastric pain. Also endorsed loss of ap petite. CT abd/pelvis-reflux esophagitis versus other process. Recommend correlation patients clinical findings and if indicated additional imaging. Mild descending and sigmoid colitis versus underdistention. she received pepcid and morhpine in the ER and continued outpatient pepcid. She is reluctant to follow up as recommended. Anxiety/depression: On abilify, wellbutrin, depakote. Started propranolol for social anxiety, traveling CV-On diltiazem, furosemide, atovastatin. Denies chest pain, shortness of breath. Per records colonoscopy 11/21/2015 ROS see HPI Buttock pain PHYSICAL EXAM: GENERAL: Alert and oriented x 3. NAD. In WC EYES: EOMI. Anicteric. HENT: Moist mucous membranes LUNGS: Good air entry bilaterally CARDIOVASCULAR: Regular rate and rhythm. ABDOMEN: Soft, non-tender +bs EXTREMITIES: No edema. Non-tender. SKIN: skin breakdown gluteal cleft with surrounding erythema NEUROLOGIC: Generalized weakness. CN II-XII grossly intact PSYCHIATRIC: Cooperative. Appropriate mood and affect [facility] Medical History Bradycardia Family History Other FH: mental illness Substance use Social History Housing: House Patient Tobacco Use Status: Former Tobacco user Cigarette Packs Per Day: 1 Years Smoked: 4 e-Cigarette/Vaping Use: Never Used Second Hand Smoke Exposure: No service: No Current occupational status: retired Cognitive needs: No Hearing needs: No Vision needs: Yes Questionnaire PHQ-9 Over the last 2 weeks, how often have you been bothered by any of the following problems? [id number] - PHQ-9 Billing: Patient declined-do not bill Source: Developed by Drs. Shane Casas, Jessica Lang, Rl Mesa and colleagues, with an educational meron from [employer]. Thrive Questionnaire Date Thrive assessed: 01/19/24 MALCOLM-7 AMB Questionnaire MALCOLM-7 Date MALCOLM - 7 assessed: 01/19/24 Source: Developed by Drs. Shane Casas, Jessica Lang, Rl Mesa and colleagues, with an educational meron from [employer]. Physical exam (Primary Care) Tobacco/Smoking Status: Tobacco use Status Tobacco use date assessed 01/19/24 04/06/24 15:36 Patient Tobacco Use Status Former Tobacco user 04/06/24 15:36 e-Cigarette/Vaping Use Never Used 04/06/24 15:36 Thrive Assessment: Date of Thrive Assessment Date Thrive assessed 01/19/24 04/06/24 15:36 Coding Level of Care Code Est Pt Level 4 (72801) Diagnoses Wound of sacral region, initial encounter S31.000A Encounter type: initial encounter Generalized weakness R53.1 Assessment & Plan Assessment & Plan (1) Sacral wound: Code(s): S31.000A - Unspecified open wound of lower back and pelvis without penetration into retroperitoneum, initial encounter Category: Medical Qualifiers: Encounter type: initial encounter Qualified Code(s): S31.000A - U nspecified open wound of lower back and pelvis without penetration into retroperitoneum, initial encounter Plan: Recommend frequent position changes Keflex ordered Referral to home health-wound (2) Generalized weakness: Code(s): R53.1 - Weakness Category: Medical Plan: referral home health Orders: Referrals Home Health Referral S31.000A - Unspecified open wound of lower back and pelvis without penetration into retroperitoneum, initial encounter Medications: New cephalexin 500 mg PO QID 7 days 28 caps 0RF
[2024-04-06 15:38] VITALS: BP 132/72; PULSE 67; RESP 13; O2SAT 95
== END 2024-04-06 15:56 | disposition home or self-care (01) ==
LOC: HO.HMCFM 15:34
PROVIDERS: PCP Internal Medicine; Visit Provider Internal Medicine
DX: S31.000A Unspecified open wound of lower back and pelvis without penetration into retroperitoneum, initial encounter (principal); R53.1 Weakness

== ENCOUNTER → 2024-04-06 15:34 | Outpatient (BNVA) | payer MEDICARE, SELFPAY | PROVIDERS: PCP Internal Medicine; Visit Provider Internal Medicine | DX: S31.000A Unspecified open wound of lower back and pelvis without penetration into retroperitoneum, initial encounter (principal); R53.1 Weakness; I10 Essential (primary) hypertension; F41.9 Anxiety disorder, unspecified; F32.A Depression, unspecified; G89.29 Other chronic pain; M54.50 Low back pain, unspecified; M25.552 Pain in left hip; M25.551 Pain in right hip; M79.604 Pain in right leg; M79.605 Pain in left leg; Z79.891 Long term (current) use of opiate analgesic; Z79.899 Other long term (current) drug therapy | CPT/HCPCS: 99212 ==

== ENCOUNTER → 2024-05-04 23:59 | Outpatient (BNV) | payer MEDICARE, OTHER, MEDICAID, SELFPAY | PROVIDERS: PCP Internal Medicine; Visit Provider Internal Medicine | DX: L89.312 Pressure ulcer of right buttock, stage 2 (principal); L89.322 Pressure ulcer of left buttock, stage 2 | CPT/HCPCS: G0180 ==

== ENCOUNTER 2024-08-10 09:35 | Outpatient (REF) | payer MEDICARE, OTHER, MEDICAID, SELFPAY ==
--- NOTE | ~2024-08-10 | FL_ITS ---
EXAMINATION: XR FLUOROSCOPY ESOPHAGRAM. CLINICAL INFORMATION: Dysphagia, unspecified. Stomach pain. Patient cannot eat until late in the afternoon due to stomach pain. COMPARISON: None TECHNIQUE: Fluoroscopic air contrast upper GI examination was performed utilizing standard techniques with thin and thick barium and effervescent granules. Numerous spot images were obtained. Several fluoroscopic image hold cine sequences were also obtained. FINDINGS: Study was somewhat limited as the patient was unable to tolerate any prone positioning, nor prone swallowing of single contrast thin barium. This limits the sensitivity of the study. UPPER GI SERIES: Lateral cine images of the oropharynx and hypopharynx demonstrate normal swallow mechanism with normal epiglottic inversion and soft palate elevation. No laryngeal penetration, glottic or subglottic aspiration identified. No nasopharyngeal reflux present. Hypopharyngeal structures appear normal without evidence of mass or diverticulum. There was no significant cricopharyngeal achalasia. Dual and single contrast images of the esophagus demonstrate a patulous caliber, mildly tortuous contour, and granular mucosal pattern. No evidence of stricture, mass, or gross ulcerations identified. Esophageal peristalsis was moderately disordered. Limited assessment for hiatus hernia. There may be a small type I hiatus hernia. Episodic gastroesophageal reflux observed during the exam to the level of the aortic arch. Suboptimal evaluation of the stomach due to poor coating of the greater curvature and superior wall. Grossly normal contour. Granular mucosal pattern with thickening of the areae gastricae, and numerous small foci of contrast pooling suggesting submucosal ulcerations. No gross mass or large ulcer. Contrast freely passed into the gastric antrum and duodenal bulb without delay. Single and air-contrast images of the duodenal bulb demonstrate no abnormality. The duodenal sweep has a normal appearance, course, and mucosal fold appearance. FLUOROSCOPY TIME: 1 minute, 58 seconds Number of Spot Images:6 Number of cines obtained: 6 DOSE AREA PRODUCT: 2223 uGy-m2 (microgray-meter squared) FL/FL barium swallow IMPRESSION: Somewhat limited exam as discussed above. The patient was unable to tolerate prone positioning as discussed. The patient had limited ability to position in supine position due to back pain. 1. Patulous, tortuous esophagus with moderately disordered esophageal peristalsis. Granular mucosal pattern likely representing esophagitis. 2. Episodic gastroesophageal reflux observed during the examination to the level of the aortic arch. 3. Findings of the stomach of granular mucosal pattern with thickening of the areae gastricae, and numerous small foci of contrast pooling suggesting submucosal ulceration. Findings suggest erosive gastritis. 4. Limited assessment for hiatus hernia. There may be a small type I hernia present. Electronically signed by: Anderson Florez MD 08/10/2024 10:45 AM EDT
== END 2024-08-10 09:36 | disposition home or self-care (01) ==
LOC: HO.XRAY 09:35
PROVIDERS: PCP Internal Medicine; Visit Provider Internal Medicine
DX: R13.10 Dysphagia, unspecified (principal); R63.4 Abnormal weight loss
CPT/HCPCS: 74220

== ENCOUNTER → 2024-08-10 09:37 | Outpatient (BNV) | payer MEDICARE, OTHER, MEDICAID, SELFPAY | PROVIDERS: PCP Internal Medicine; Visit Provider Radiology Diagnostic Radiology | DX: R10.84 Generalized abdominal pain (principal) | CPT/HCPCS: 74246 ==

== ENCOUNTER 2024-08-31 14:00 | Outpatient (AMB) | payer MEDICARE, OTHER, MEDICAID, SELFPAY ==
--- NOTE | 2024-08-31 14:07 | A.OFFPC_ITS ---
Vital Signs 08/31/24 14:14 BMI Reason not done Patient refused/unable BP 124/62 Blood Pressure Location Rt brachial Position Sitting Respiration 14 Pulse 47 L Pulse Source Pulse Oximeter Pulse Oximetry (%) 95 Oxygen Delivery Method Room Air Intake Visit Reasons: Medications Intake Note: Medication follow up. Barium swallow results. Vice President Payer Required: No Allergies codeine Allergy (Verified 08/31/24 14:08) itching Tobacco use date assessed: 08/31/24 Fall risk assessment: No Falls in past year Last assessed Fall Risk: 08/31/24 Dental Screening Dental Screen Date: 08/31/24 Did you have a dental visit in the last 12 months?: Yes Did you have a dental problem in the last 6 months where you did not have access to dental care?: No Was dental information given to patient?: Patient has dentist HPI HPI Comments History of Present Illness Details This is a 73 year old female with a past medical history of anxiety, depression, hypertension, hyperlipidemia, osteoporosis, GERD, OAB presenting for sacral wound. She is accompanied by her and son Chronic pain-Low back, hips, legs. Saw pain management. Tried to rx xtampza but not covered by insurance. On chronic opioid therapy. In WC. Can stand and support weight for short periods with arms. Would walk more but needs help with balance, weakness and needs to stop to rest. Was referred for physical therapy. Sacral wounds are resolved GI: Saw GI recently-who noted persistent dysphagia, early satiety with dramatic weight loss is concerning for possible malignancy. Other ddx include peptic stricture, severe esophagitis, PUD, dysmotility. Start omeprazole 20 BID for possible esophagitis noted on CT abd/pel at [facility]. Barium swallow performed. CT Chest to r/o psuedoachalasia given age. Urgent EGD to be booked. She was noted during the visit to have irregular rhythm and slow HR on exam. Was evaluated at [facility] ER on 09/04/23. She presented with c/o epigastric pain. Also endorsed loss of appetite. CT abd/pelvis-reflux esophagitis versus other process. Recommend correlation patients clinical findings and if indicated additional imaging. Mild descending and sigmoid colitis versus underdistention. she received pepcid and morhpine in the ER and continued outpatient pepcid. She is reluctant to follow up as recommended. Anxiety/depression: On abilify, wellbutrin, depakote, trazodone. Still with some residual depression. Started propranolol for social anxiety, traveling but she has been noted with bradycardia. Asymptomatic. Will DC today CV-On diltiazem, furosemide, atorvastatin. Denies chest pain, shortness of breath. Per records colonoscopy 11/21/2015 ROS see HPI Buttock pain PHYSICAL EXAM: GENERAL: Alert and oriented x 3. NAD. In WC EYES: EOMI. Anicteric. HENT: Moist mucous membranes LUNGS: Good air entry bilaterally CARDIOVASCULAR: Regular rate and rhythm. ABDOMEN: Soft, non-tender +bs EXTREMITIES: No edema. Non-tender. SKIN: skin breakdown gluteal cleft with surrounding erythema NEUROLOGIC: Generalized weakness. CN II-XII grossly intact PSYCHIATRIC: Cooperative. Appropriate mood and affect [facility] Medical History Bradycardia Family History Other FH: mental illness Substance use Social History Housing: House Alcohol intake: never Patient Tobacco Use Status: Former Tobacco user Cigarette Packs Per Day: 1 Years Smoked: 4 e-Cigarette/Vaping Use: Never Used Second Hand Smoke Exposure: No Use of substances other than those prescribed or required for medical reasons: Yes Substance Use Type: Marijuana service: No Current occupational status: retired Cognitive needs: No Hearing needs: No Vision needs: Yes Questionnaire Thrive Questionnaire Date Thrive assessed: 01/19/24 AUDIT C Alcohol Use Questionnaire (AUDIT-C) 1. How often do you have a drink containing alcohol?: Never 3. How often do you have six or more drinks on one occasion?: Never Total Score: 0 MALCOLM-7 AMB Questionnaire MALCOLM-7 Date MALCOLM - 7 assessed: 01/19/24 Source: Developed by Drs. Shane Casas, Jessica Lang, Rl Mesa and colleagues, with an educational meron from [employer]. Physical exam (Primary Care) Vital Signs: Last Vital Signs Pulse 47 L 08/31/24 14:14 Resp 14 08/31/24 14:14 BP 124/62 08/31/24 14:14 Pulse Ox 95 08/31/24 14:14 Oxygen Delivery Method Room Air 08/31/24 14:14 Tobacco/Smoking Status: Tobacco use Status Tobacco use date assessed 08/31/24 08/31/24 14:19 Patient Tobacco Use Status Former Tobacco user 08/31/24 14:19 e-Cigarette/Vaping Use Never Used 08/31/24 14:19 Thrive Assessment: Date of Thrive Assessment Date Thrive assessed 01/19/24 08/31/24 14:19 Coding Level of Care Code Est Pt Level 4 (74244) Complex EM visit Add On G2211 Diagnoses Major depressive disorder, recurrent, in partial remission F33.41 Esophagitis K20.90 Bradycardia R00.1 Dysphagia, unspecified type R13.10 Dysphagia type: unspecified Low back pain, unspecified back pain laterality, unspecified chronicity, unspecified whether sciatica present M54.50 Chronicity: unspecified Back pain laterality: unspecified Sciatica presence: unspecified whether sciatica present Right hip pain M25.551 Assessment & Plan Assessment & Plan (1) Major depressive disorder, recurrent, in partial remission: Code(s): F33.41 - Major depressive disorder, recurrent, in partial remission Category: Medical (2) Esophagitis: Code(s): K20.90 - Esophagitis, unspecified without bleeding Category: Medical (3) Bradycardia: Code(s): R00.1 - Bradycardia, unspecified Category: Medical (4) Dysphagia: Code(s): R13.10 - Dysphagia, unspecified Category: Medical Qualifiers: Dysphagia type: unspecified Qualified Code(s): R13.10 - Dysphagia, unspecified (5) Low back pain: Code(s): M54.50 - Low back pain, unspecified Category: Medical Qualifiers: Chronicity: unspecified Back pain laterality: unspecified Sciatica presence: unspecified whether sciatica present Qualified Code(s): M54.50 - Low back pain, unspecified (6) Right hip pain: Code(s): M25.551 - Pain in right hip Category: Medical Plan Bradycardia-asymptomatic. Stop propranolol and follow BH-Still with some unresolved anxiety. Stop BB add bupspar Chronic pain. following pain management. Increase oxycodone TID to QID Orders: Orders Basic Metabolic Panel 08/31/24 M54.50 - Low back pain, unspecified, R00.1 - Bradycardia, unspecified, R13.10 - Dysphagia, unspecified Lyme IgG/IgM w/reflex to WB 08/31/24 M54.50 - Low back pain, unspecified, R00.1 - Bradycardia, unspecified, R13.10 - Dysphagia, unspecified TSH reflex Free T4 08/31/24 M54.50 - Low back pain, unspecified, R00.1 - Bradycardia, unspecified, R13.10 - Dysphagia, unspecified Medications: New buspirone 7.5 mg PO BID 180 tabs 0RF Refilled oxycodone-acetaminophen 10-325 mg 1 tab PO TID PRN 112 tabs 0RF pain M54.50 - Low back pain, unspecified Discontinued propranolol Discontinued Reason: Doctor's Order 20 mg PO DAILY PRN 30 tabs 11RF for anxiety F41.9 - Anxiety disorder, unspecified bupropion HCl XL Discontinued Reason: Doctor's Order 150 mg PO DAILY 28 tabs 5RF
[2024-08-31 14:14] VITALS: BP 124/62; PULSE 47; RESP 14; O2SAT 95
== END 2024-08-31 14:36 | disposition home or self-care (01) ==
LOC: HO.HMCFM 14:02
PROVIDERS: PCP Internal Medicine; Visit Provider Internal Medicine
DX: F33.41 Major depressive disorder, recurrent, in partial remission (principal); K20.90 Esophagitis, unspecified without bleeding; R00.1 Bradycardia, unspecified; R13.10 Dysphagia, unspecified; M54.50 Low back pain, unspecified; M25.551 Pain in right hip

== ENCOUNTER → 2024-08-31 14:00 | Outpatient (BNVA) | payer MEDICARE, OTHER, MEDICAID, SELFPAY | PROVIDERS: PCP Internal Medicine; Visit Provider Internal Medicine | DX: Z13.89 Encounter for screening for other disorder (principal) | CPT/HCPCS: 99212 ==

== ENCOUNTER 2024-08-31 14:39 | Outpatient (REF) | payer MEDICARE, OTHER, MEDICAID, SELFPAY ==
[2024-08-31 18:57] LABS: Anion Gap 11 (12-20); Blood Urea Nitrogen 11 mg/dL (9-16); Carbon Dioxide 28 mmol/L (22-29); Chloride 105 mmol/L (96-108); Estimated Glomerular Filt Rate > 60; Glucose Random 87 mg/dL (60-115); Potassium 4.3 mmol/L (3.3-5.1); Sodium 140 mmol/L (135-145)
[2024-08-31 19:16] LABS: TSH reflex Free T4 1.53 uIU/mL (0.32-4.0)
[2024-09-01 05:53] LABS: Lyme Abs Screen <0.90 index
== END 2024-08-31 14:40 | disposition home or self-care (01) ==
LOC: HO.WFDLDS 14:39
PROVIDERS: Visit Provider Internal Medicine
DX: R00.1 Bradycardia, unspecified (principal); R13.10 Dysphagia, unspecified; M54.50 Low back pain, unspecified
CPT/HCPCS: 36415; 80048; 84443; 86617; 86618; 99212

== ENCOUNTER 2024-09-09 13:49 | Outpatient (REF) | payer MEDICARE, OTHER, MEDICAID, SELFPAY ==
--- NOTE | ~2024-09-09 | CT_ITS ---
EXAMINATION: CT CHEST WITH CONTRAST CLINICAL INFORMATION: Dysphasia DLP: 513 mGY*cm COMPARISON: None available. TECHNIQUE: Multidetector volumetric CT imaging of the chest was obtained after the administration of 65 mL of Omnipaque 350 intravenous contrast without immediate adverse reactions. Axial MIP volume rendering provided. Sagittal and coronal reformatted images were obtained. This CT examination was performed using dose optimization techniques as appropriate, variously including the following: *Automated exposure control *Adjustment of mA and/or kV according to patient size (this includes techniques or standardized protocols for targeted exams where dose is matched to indication/reason for exam; i.e. extremities or head) *Use of iterative reconstruction technique FINDINGS: LUNGS: The lungs are provided. There are cystic or bullous changes present in the medial segment right middle lobe. Septal lines are present in the posterior base of the left lower lobe there is mild cylindrical bronchiectasis in the lower lobe. MEDIASTINUM: The esophagus is mildly dilated mid to upper chest. See recently performed barium swallow result. PLEURA: There is linear thickening along the junction of the posterior cystic changes in the medial segment right middle lobe and the major fissure which is tented anteriorly consistent with scarring. There is focal pleural thickening, 4 mm thick, involving the posterior lateral aspect of the right upper lobe in the lower portion about lobe. AXILLA: No lymphadenopathy. UPPER ABDOMEN: There are mild fatty changes in the liver. The left kidney demonstrates a fluid density that is incompletely imaged and measures 5.9 cm anterior to posterior. There is at least one thin internal septation. Lesion extends through the cortex to the pelvic fat with a benign renal cyst. There is a 17 x 20 mm apparent AP by transverse) fluid density in the superficial soft tissues anterior to the mid sternal body that is likely cystic in nature. OSSEOUS STRUCTURES: Flowing anterior osteophytes are present throughout the thoracic spine. There is severe degenerative change in imaged portions of the lumbar spine consistent with degenerative disease and facet arthropathy. Posterior right fourth fifth and 10th ribs demonstrate deformity suggesting prior fractures. There is end-stage degenerative changes in the left shoulder joint likely with a joint effusion and moderate degenerative change in the right shoulder joint. CT/CT chest w IV con IMPRESSION: The lungs are mildly hyperexpanded with moderate bullous or cystic changes and evidence of scarring in the medial segment of the right middle lobe. Fatty change in liver. Incompletely imaged cyst of the left kidney contains at least one thin septation. Extensive degenerative disc disease. End-stage degenerative change in the left shoulder with probable synovitis. Fleischner guidelines were followed. Electronically signed by: Bolivar Zuñiga MD 09/09/2024 05:28 PM EDT RP
[2024-09-09] MEDS: iohexoL 350 MG/ML 100 ML INFUS..BTL IV (15:11)
== END 2024-09-09 13:50 | disposition home or self-care (01) ==
LOC: HO.CT 13:49
PROVIDERS: PCP Internal Medicine; Visit Provider Internal Medicine
DX: R13.10 Dysphagia, unspecified (principal); R63.4 Abnormal weight loss
CPT/HCPCS: 71260; Q9967

== ENCOUNTER → 2024-09-09 13:51 | Outpatient (BNV) | payer MEDICARE, OTHER, MEDICAID, SELFPAY | PROVIDERS: PCP Internal Medicine; Visit Provider Radiology Diagnostic Radiology | DX: J98.4 Other disorders of lung (principal) | CPT/HCPCS: 71260 ==

== ENCOUNTER 2024-10-05 10:58 | Outpatient (AMB) | payer MEDICARE, OTHER, MEDICAID, SELFPAY ==
--- NOTE | 2024-10-05 11:03 | MHC.PC.OV ---
Vital Signs 10/05/24 11:08 BMI Reason not done Patient refused/unable BP 128/60 Blood Pressure Location Rt brachial Position Sitting Respiration 14 Pulse 56 Pulse Source Pulse Oximeter Temp 97.9 F Temp Source Oral Pulse Oximetry (%) 94 Oxygen Delivery Method Room Air Intake Visit Reasons: ear pain/itchy Intake Note: Bilateral ear pain and itching [facility] Wellness Coordinator Required: No Allergies codeine Allergy (Verified 10/05/24 11:03) itching Tobacco use date assessed: 08/31/24 Dental Screening Dental Screen Date: 08/31/24 HPI HPI Comments History of Present Illness Details This is a 74 year old female with a past medical history of anxiety, depression, hypertension, hyperlipidemia, osteoporosis, GERD, OAB presenting for ear issues and for preop clearance-plan for upper endoscopy. She is accompanied by her and son CV-On diltiazem, furosemide, atorvastatin. Propranolol DCd for bradycardia (asymptomatic). EKG today sinus patrick at 57-improved from 40s. Denies chest pain, shortness of breath. Patients mobility is extremely limited by pain, so METS are hard to calculate. She has tolerated anesthesia in the past Chronic pain-Low back, hips, legs. Saw pain management. Tried to rx xtampza but not covered by insurance. On chronic opioid therapy. In WC. Can stand and support weight for short periods with arms. Would walk more but needs help with balance, weakness and needs to stop to rest. Was referred for physical therapy. Sacral wounds are resolved GI: Saw GI persistent dysphagia, early satiety with dramatic weight loss is concerning for possible malignancy. Other ddx include peptic stricture, severe esophagitis, PUD, dysmotility. Start omeprazole 20 BID for possible esophagitis noted on CT abd[place] [facility] Barium swallow performed. CT Chest to r/o psuedoachalasia given age. Urgent EGD to be booked. She was noted during the visit to have irregular rhythm and slow HR on exam. Was evaluated at [facility] ER on 09/04/23. She presented with c/o epigastric pain. Also endorsed loss of appetite. CT abd/pelvis-reflux esophagitis versus other process. Recommend correlation patients clinical findings and if indicated additional imaging. Mild descending and sigmoid colitis versus underdistention. she received pepcid and morhpine in the ER and continued outpatient pepcid. She is reluctant to follow up as recommended. Continued issues with swallowing, globus and frequent dyspepsia Anxiety/depression: On abilify, wellbutrin, depakote (not tolerating), trazodone. Still with some residual depression. Bilateral ear fullness, clogged sensation. right ear minimal cerumen. Left is impacted. Per records colonoscopy 11/21/2015 ROS see HPI PHYSICAL EXAM: GENERAL: Alert and oriented x 3. NAD. In WC EYES: EOMI. Anicteric. HENT: Moist mucous membranes LUNGS: Good air entry bilaterally CARDIOVASCULAR: Regular rate and rhythm. ABDOMEN: Soft, non-tender +bs EXTREMITIES: No edema. Non-tender. SKIN: warm, dry NEUROLOGIC: Generalized weakness. CN II-XII grossly intact PSYCHIATRIC: Cooperative. Appropriate mood and affect [facility] Medical History Bradycardia Family History Other FH: mental illness Substance use Social History Housing: House Alcohol intake: never Patient Tobacco Use Status: Former Tobacco user Cigarette Packs Per Day: 1 Years Smoked: 4 e-Cigarette/Vaping Use: Never Used Second Hand Smoke Exposure: No Substance Use Type: Marijuana service: No Current occupational status: retired Cognitive needs: No Hearing needs: No Vision needs: Yes Questionnaire PHQ-9 Over the last 2 weeks, how often have you been bothered by any of the following problems? 1. Little interest or pleasure in doing things: more than half the days 2. Feeling down, depressed, or hopeless: more than half the days 3. Trouble falling or staying asleep, or sleeping too much: several days 4. Feeling tired or having little energy: more than half the days 5. Poor appetite or overeating: more than half the days 6. Feeling bad about yourself - or that you are a failure or have let yourself or your family down: several days 7. Trouble concentrating on things, such as reading the newspaper or watching television: several days 8. Moving or speaking so slowly that other people could have noticed. Or the opposite - being so fidgety or restless that you have been moving around a lot more than usual: several days 9. Thoughts that you would be better off or of hurting yourself in some way: not at all Total score: 12 Depression Screening Interpretation: Positive Depression Screening Follow-up: Existing condition Depression Screening Done: Yes 56483 - PHQ-9 Billing: Yes Source: Developed by Drs. Shane Casas, Rl Pierson and colleagues, with an educational meron from [employer]. Thrive Questionnaire Date Thrive assessed: 10/05/24 I am a: Patient What is your living situation today?: I have a steady place to live Within the past 12 months, did the food you bought not last and you didn't have the money to get more?: Never true Within the past 12 months, did you worry whether your food would run out before you got money to buy more?: Never true Do you have trouble paying for medicines?: No Do you have trouble getting transportation to medical appointments?: No Do you have trouble paying your heating and electricity bill?: No Do you have trouble taking care of your child, family member or friend?: No Do you have trouble with day-to-day activities such as bathing, preparing meals, shopping, managing finances, etc.?: Yes Are you currently unemployed and looking for a job?: No Are you interested in more education?: No Please select the resources that you would like help with: None THRIVE Score: 0 MALCOLM-7 AMB Questionnaire MALCOLM-7 Date MALCOLM - 7 assessed: 01/19/24 Source: Developed by Drs. Shane Casas, Jessica Lang, Rl Mesa and colleagues, with an educational meron from [employer]. Physical exam (Primary Care) Vital Signs: Last Vital Signs Temp 97.9 F 10/05/24 11:08 Pulse 56 10/05/24 11:08 Resp 14 10/05/24 11:08 BP 128/60 10/05/24 11:08 Pulse Ox 94 10/05/24 11:08 Oxygen Delivery Method Room Air 10/05/24 11:08 Tobacco/Smoking Status: Tobacco use Status Tobacco use date assessed 08/31/24 10/05/24 11:06 Patient Tobacco Use Status Former Tobacco user 10/05/24 11:06 e-Cigarette/Vaping Use Never Used 10/05/24 11:06 PHQ-9: PHQ-9 Score PHQ-9: Total score 12 10/05/24 11:20 Depression Screening Interpretation: Positive Depression Screening Follow-up: Existing condition Thrive Assessment: Date of Thrive Assessment Date Thrive assessed 10/05/24 10/05/24 11:06 Coding Level of Care Code Est Pt Level 4 (17360) Complex EM visit Add On G2211 Diagnoses Preop cardiovascular exam Z01.810 Impacted cerumen of left ear H61.22 Laterality: left Dysphagia, unspecified type R13.10 Dysphagia type: unspecified Additional Codes PHQ-9 - 61373 - PHQ-9 Billing: Yes ([id number]) Assessment & Plan Assessment & Plan (1) Preop cardiovascular exam: Code(s): Z01.810 - Encounter for preprocedural cardiovascular examination Category: Medical (2) Cerumen impaction: Code(s): H61.20 - Impacted cerumen, unspecified ear Category: Medical Qualifiers: Laterality: left Qualified Code(s): H61.22 - Impacted cerumen, left ear (3) Dysphagia: Code(s): R13.10 - Dysphagia, unspecified Category: Medical Qualifiers: Dysphagia type: unspecified Qualified Code(s): R13.10 - Dysphagia, unspecified Plan Preoperative assessment Patient without known significant cardiopulmonary disease. No Bradycardia has essentially normalized off BB. EKG reviewed METs difficult to assess due to mobility issues however RCRI score is 0 Patient is average risk for low to average risk procedure. She can proceed with EGD or double endoscopy without further cardiac work up Cerumen impaction-Left ear unable to flush. Debrox x one week and return for flushing. Orders: Orders Complete Blood Count Auto Diff Today Z01.810 - Encounter for preprocedural cardiovascular examination Comprehensive Met. Panel Today Z01.810 - Encounter for preprocedural cardiovascular examination TSH reflex Free T4 Today Z01.810 - Encounter for preprocedural cardiovascular examination Referrals Ophthalmology Referral H54.7 - Unspecified visual loss Medications: New Debrox 6.5% (carbamide peroxide) 5 drps otic (ear) right Q12H 15 mL 0RF 7 days NS
[2024-10-05 11:08] VITALS: BP 128/60; PULSE 56; RESP 14; TEMP 36.6; O2SAT 94
== END 2024-10-05 11:57 | disposition home or self-care (01) ==
LOC: HO.HMCFM 10:59
PROVIDERS: PCP Internal Medicine; Visit Provider Internal Medicine
DX: Z01.810 Encounter for preprocedural cardiovascular examination (principal); H61.22 Impacted cerumen, left ear; R13.10 Dysphagia, unspecified

== ENCOUNTER → 2024-10-05 10:58 | Outpatient (BNVA) | payer MEDICARE, OTHER, MEDICAID, SELFPAY | PROVIDERS: PCP Internal Medicine; Visit Provider Internal Medicine | DX: Z01.810 Encounter for preprocedural cardiovascular examination (principal); H61.22 Impacted cerumen, left ear; R13.10 Dysphagia, unspecified; H54.7 Unspecified visual loss; I10 Essential (primary) hypertension; E78.5 Hyperlipidemia, unspecified; F41.8 Other specified anxiety disorders; Z79.899 Other long term (current) drug therapy; Z13.31 Encounter for screening for depression | CPT/HCPCS: 96127; 99212 ==

== ENCOUNTER 2024-10-08 11:52 | Day surgery (SDC) | payer MEDICARE, OTHER, MEDICAID, SELFPAY ==
[2024-10-06 15:07] VITALS: BMI 30.6
--- NOTE | 2024-10-06 15:33 | HO.ANESPROP2 ---
Documented by User: Kamille Phillips NP 10/06/24 15:39 HPI - Anesthesia Eval Consult details Narrative: ?74 yr old female for Upper Endoscopy with Balloon Dilitation. Medically optimized per primary care. Hx bradycardia, improved off beta petra. PMFSH Active Problems Active Problems: All Active Problems (Updated 10/06/24 @ 15:04 by Jennifer Tidwell RN) Cerumen impaction (Acute) Preop cardiovascular exam (Acute) Sacral wound (Acute) Pre-op evaluation (Acute) Esophagitis (Acute) Unintentional weight loss (Acute) Dysphagia (Acute) Sinusitis (Acute) Heartburn (Acute) Generalized weakness (Acute) Major depressive disorder, recurrent, in partial remission (Acute) Hospital discharge follow-up (Acute) Anxiety (Acute) Low back pain (Acute) Right hip pain (Acute) Bradycardia (Acute) Past Medical History Medical History (Updated 10/06/24 @ 15:04 by Jennifer Tidwell RN) Heartburn Dysphagia Anxiety Depression Bradycardia Family History Family History Other FH: mental illness Substance use Surgical History Surgical History (Updated 10/08/24 @ 12:44 by Tayler Mayes RN) H/O hand surgery Hx of tonsillectomy Total knee replacement status History of lung surgery History of excision of pilonidal cyst Social History Social History Housing: House Are you a primary lead care manager to a significant other at home: No Do you presently have visiting nurse or other home services: No Alcohol intake: never Patient Tobacco Use Status: Former Tobacco user Cigarette Packs Per Day: 1 Years Smoked: 4 e-Cigarette/Vaping Use: Never Used Second Hand Smoke Exposure: No Substance Use Type: Marijuana service: No Current occupational status: retired Cognitive needs: No Hearing needs: No Vision needs: Yes Meds Allergies Allergy/AdvReac Type Severity Reaction Status Date / Time codeine Allergy Intermediate itching Verified 10/08/24 12:42 Home Medications ?Medication ?Instructions ?Recorded ?Confirmed ?Last Taken ?Type calcium citrate 250 mg PO DAILY 08/14/23 11/11/23 Unknown History bupropion HCl 150 mg 24 hr tablet, 150 mg PO QAM 10/05/24 10/06/24 Unknown History extended release (Wellbutrin XL) furosemide 20 mg tablet 20 mg PO BID 10/05/24 10/08/24 08/08/24 History Exam Height,Weight and Vital Signs: Height 5 ft 3 in Weight 78.471 kg Narrative Narrative: EKG 10/05/24 sinus bradycardia, rate 57. Assessment and Plan Assessment Anesthesia Assessment: Chart Reviewed Documented by User: Dwayne Heredia MD 10/08/24 14:41 [facility] Past Medical History Medical History (Updated 10/06/24 @ 15:04 by Jennifer Tidwell RN) Heartburn Dysphagia Anxiety Depression Bradycardia Narrative: Bullous lung dis on chest CT. Family History Family History Other FH: mental illness Substance use Family history of problems with anesthesia: No Surgical History Surgical History (Updated 10/08/24 @ 12:44 by Tayler Mayes RN) H/O hand surgery Hx of tonsillectomy Total knee replacement status History of lung surgery History of excision of pilonidal cyst History of Problems with Anesthesia: No Social History Social History Housing: House Are you a primary lead care manager to a significant other at home: No Do you presently have visiting nurse or other home services: No Alcohol intake: never Patient Tobacco Use Status: Former Tobacco user Cigarette Packs Per Day: 1 Years Smoked: 4 e-Cigarette/Vaping Use: Never Used Second Hand Smoke Exposure: No Substance Use Type: Marijuana service: No Current occupational status: retired Cognitive needs: No Hearing needs: No Vision needs: Yes Meds Allergies Allergy/AdvReac Type Severity Reaction Status Date / Time codeine Allergy Intermediate itching Verified 10/08/24 12:42 Home Medications ?Medication ?Instructions ?Recorded ?Confirmed ?Last Taken ?Type calcium citrate 250 mg PO DAILY 08/14/23 11/11/23 Unknown History bupropion HCl 150 mg 24 hr tablet, 150 mg PO QAM 10/05/24 10/06/24 Unknown History extended release (Wellbutrin XL) furosemide 20 mg tablet 20 mg PO BID 10/05/24 10/08/24 08/08/24 History Exam Airway Mallampati Class: II TM Dist: <=3cm Neck ROM: Full Denture: Upper and Lower Heart: ok Lungs: ok Assessment and Plan Assessment Anesthesia Assessment: Anesthesia Plan Discussed Final Anesthetic Review Family History of Problems with Anesthesia: No History of Problems with Anesthesia: No NPO: Yes ASA Class: III Final Preanesthetic Review: No Changes in Pt Med Stat, Meds/Allgs Chart Reviewed, Consent Obtained/Reviewed and Anes Risks/Benef Reviewed Patient Risk: High Procedure Risk: Intermediate Anesthetic Plan Anesthetic Plan: Agree w/ Assess. and Plan and TIVA Disposition: Standard PACU
[2024-10-08 12:44] VITALS: BP 135/55; PULSE 56; RESP 16; TEMP 36.6; O2SAT 98
[2024-10-08] MEDS: Lactated Ringers 1,000 ML 100 ML IVCONT (12:48)
--- NOTE | 2024-10-08 14:11 | MHC.SHP ---
Pre-Procedural Eval Section A - 24 Hr Update-Section A only Date of Service: 10/08/24 Section B - Complete if H&P > 30 days Chief Complaint: Dysphagia, Details of Present Illness: FH: mental illness Substance use Present Medications: see Short Stay Collaborative assessment Allergies: Allergies Allergy/AdvReac Type Severity Reaction Status Date / Time codeine Allergy Intermediate itching Verified 10/08/24 12:42 Review of Systems Review of Systems Comment: Ten point ROS negative Exam Exam Comment: Gen appear: No acute distress HEENT: no icterus Chest: No overt resp distress Abd: soft, nontender, nondistended Psych: Stable affect, answering questions appropriately Neuro: A/Ox3 noted to move all extremities spontaneously Ext: no peripheral edema Plan Diagnosis/Plan: Unchanged I have reviewed the history and physical and performed a pertinent physical examination on my patient. No changes have occurred unless specified. Time Spent With Patient Time: Total time managing care of this patient today ____ minutes.
--- NOTE | 2024-10-08 14:14 | P.OP_ITS ---
Operative Note Operative Note Date of Service: 10/08/24 Narrative: Procedure: Esophagogastroduodenoscopy Endoscopist: Suzanna Hester MD Indication: Dysphagia Anesthesia Provider: Dr Dwayne Heredia Anesthesia Type: MAC ?? EGD Procedure:?? The procedure, indications, preparation and potential complications were reviewed with the patient, who indicated understanding and gave written informed consent to proceed. A physical exam was performed. The endoscope was introduced through the mouth, and advanced to the second part of duodenum. The mucosa was carefully examined on slow withdrawal of the endoscope. The patient tolerated the procedure well. There were no immediate complications.? ? EGD Findings:? * Esophagus:? Normal mucosa noted in the entire esophagus. The Z line was at 36 cm. Tertiary spasm and contractions noted throughout the procedure. No obvious stricture/narrowing noted. Middle and lower esophagus forceps biopsies were obtained to rule out eosinophilic esophagitis. * Stomach:? Erythema and erosion antrum. Retroflexion was performed in the cardia. Cold forceps biopsies were taken from the gastric antrum and body for histology. * Duodenum:? Normal mucosa was noted in the whole of the examined duodenum. EGD Impressions:? * Esophageal spasms * Normal esophageal mucosa (biopsy) * Gastritis (biopsy) * Normal duodenum ?? Recommendations:?? * Follow biopsy results. Our office will call or send a letter with results within 7-10 days. * Continue PPI therapy. * Avoid NSAIDs. * Will likely need HREM as outpatient.
[2024-10-08 14:36] VITALS: BP 122/64; PULSE 83; RESP 15; TEMP 36.3; O2SAT 94
[2024-10-08 15:06] VITALS: BP 135/65; PULSE 57; RESP 16; TEMP 36.8; O2SAT 97
== END 2024-10-08 15:46 | disposition home or self-care (01) ==
PROVIDERS: PCP Internal Medicine; Visit Provider Internal Medicine
PROC: (CPT 43239; principal; 2024-10-08 14:20)
DX: R13.10 Dysphagia, unspecified (principal); K22.4 Dyskinesia of esophagus; K29.50 Unspecified chronic gastritis without bleeding; K20.90 Esophagitis, unspecified without bleeding; K21.9 Gastro-esophageal reflux disease without esophagitis; R63.4 Abnormal weight loss; Z68.30 Body mass index [BMI] 30.0-30.9, adult; R00.1 Bradycardia, unspecified; I10 Essential (primary) hypertension; E78.5 Hyperlipidemia, unspecified; M81.0 Age-related osteoporosis without current pathological fracture; H61.22 Impacted cerumen, left ear; H54.7 Unspecified visual loss; F32.A Depression, unspecified; F41.9 Anxiety disorder, unspecified; Z79.899 Other long term (current) drug therapy; Z88.5 Allergy status to narcotic agent; Z87.891 Personal history of nicotine dependence; Z98.890 Other specified postprocedural states
CPT/HCPCS: 43239; 88305; 88313; 88342; J2003; J2704

== ENCOUNTER → 2024-10-08 11:52 | Outpatient (BNV) | payer MEDICARE, OTHER, MEDICAID, SELFPAY | PROVIDERS: PCP Internal Medicine; Visit Provider Internal Medicine | DX: R13.10 Dysphagia, unspecified (principal); K22.4 Dyskinesia of esophagus; K29.70 Gastritis, unspecified, without bleeding | CPT/HCPCS: 43239 ==

== ENCOUNTER 2024-11-10 10:00 | Outpatient (AMB) | payer MEDICARE, OTHER, MEDICAID, SELFPAY ==
--- NOTE | 2024-11-10 10:09 | A.OFFVIS_ITS ---
Vital Signs 11/10/24 10:14 Height 5 ft 3 in BMI Reason not done Patient refused/unable BP 147/67 H Blood Pressure Location Rt brachial Position Sitting Pulse 49 L Intake Visit Reasons: S/P EGD; Dr. Hester Intake Note: January presents in the office as a follow up EGD. CC: She states that she had her EGD and she is here for results - she is hoping for a medication for nausea that she is having. Issues with eating due to feeling sick all the time. Therapeutic Riding Instructor Required: No Allergies codeine Allergy (Intermediate, Verified 11/10/24 10:12) itching HPI Comments Details: 73 y.o F with PMH of who is here for GI sx as below. Accompanied by ex- and son. Pt reports persistent nausea for the past 4-5 years assoc with low appetite and early satiety. Pt also reports occ vomiting which is non bloody and non bilious. Has lost almost 40 lbs in the last year. This is corroborated in [place] as well (20 lbs weight loss since July 2023) Pt has been afraid of seeing a provider for this due to fear tube in mouth . Was eventually seen in ER earlier this year - CT Abd/pel suggestive of esophagitis. Images not available for review. Of note - HR noted to be erratic and low on exam today. Last colo 2016 at [facility] [place]. Does not think had polyps. 08/10/24: Barium swallow 1. Patulous, tortuous esophagus with moderately disordered esophageal peristalsis. Granular mucosal pattern likely representing esophagitis. 2. Episodic gastroesophageal reflux observed during the examination to the level of the aortic arch. 3. Findings of the stomach of granular mucosal pattern with thickening of the areae gastricae, and numerous small foci of contrast pooling suggesting submucosal ulceration. Findings suggest erosive gastritis. 4. Limited assessment for hiatus hernia. There may be a small type I hernia present. 10/08/24: * Esophageal spasms * Normal esophageal mucosa (biopsy) * Gastritis (biopsy) * Normal duodenum A. Stomach, antrum, biopsy: Antral-type mucosa with mild chronic inactive inflammation; no Helicobacter organisms seen. B. Stomach, body, biopsy: Oxyntic mucosa with mild chronic inactive inflammation; no Helicobacter organisms seen. C. Esophagus, lower, biopsy: Squamous epithelium within normal limits; no inflammation seen. D. Esophagus, middle, biopsy: Squamous epithelium within normal limits; no inflammation seen 11/10/24: Here for follow up after EGD. Accompanied by her . Seated in wheelchair. EGD and bx results reviewed. Obv continues to have dysphagia, melba to pills. Reviewed largely due to dysmotility. Also notices early satiety and bloating after eating and decreased stool frequency 3 times a week. PFSH Medical History (Updated 11/10/24 @ 11:29 by Suzanna Hester MD) Heartburn Dysphagia Anxiety Depression Bradycardia Surgical History (Updated 11/10/24 @ 10:12 by AFRICA Millard) History of esophagogastroduodenoscopy (EGD) H/O hand surgery Hx of tonsillectomy Total knee replacement status History of lung surgery History of excision of pilonidal cyst Family History Other FH: mental illness Substance use Social History Housing: House Are you a primary child care to a significant other at home: No Do you presently have visiting nurse or other home services: No Alcohol intake: never Patient Tobacco Use Status: Former Tobacco user Cigarette Packs Per Day: 1 Years Smoked: 4 e-Cigarette/Vaping Use: Never Used Second Hand Smoke Exposure: No Substance Use Type: Marijuana service: No Current occupational status: retired Cognitive needs: No Hearing needs: No Vision needs: Yes Review of Systems Const All systems reviewed & are unremarkable except as noted in HPI and below Physical Exam Vital Signs: Last Vital Signs Pulse 49 L 11/10/24 10:14 BP 147/67 H 11/10/24 10:14 Assessment & Plan Assessment & Plan (1) Dysphagia: Code(s): R13.10 - Dysphagia, unspecified Category: Medical Qualifiers: Dysphagia type: unspecified Qualified Code(s): R13.10 - Dysphagia, unspecified (2) Esophageal dysmotility: Code(s): K22.4 - Dyskinesia of esophagus Category: Medical Plan Reviewed with the pt that dysphagia likely 2/2 dysmotiltoy. no stricture or EoE noted. GIven generalised poor gut motility will trial motegrity short term. Did clarify with pt that may not specifically help with dysphagia but may reduce the sensation of post meal bloating and constipation. Plan: - Motegrity 1 mg trial x 4 weeks - Cont famotidine (hx of osteoporosis so avoiding ppi) - Return to office in 4-6 weeks - If persistent sx, will send for MBS and ST eval - Depending on those, may eventually need HREM Medications: New prucalopride (Motegrity) 1 mg PO DAILY 30 days 30 tabs 0RF prucalopride (Motegrity) 1 mg PO DAILY 30 tabs 1RF 30 days Coding Level of Care Code Est Pt Level 4 (93901) Diagnoses Dysphagia, unspecified type R13.10 Dysphagia type: unspecified Esophageal dysmotility K22.4
[2024-11-10 10:14] VITALS: BP 147/67; PULSE 49
--- OUTSIDE RECORDS SUMMARY | 2024-11-10 10:38 | XMS_ITS | Clinical Summary ---
Author Organization [facility] Address [address] [address] Phone Care Team Providers Care Front End Wheel Loader Operator Name Role Phone Seth Aguila MD Primary Care Provider [phone] Allergies Active Allergy Reactions Criticality Noted Date Comments Codeine Itching 08/26/2021 Medications omeprazole (PRILOSEC) 40 MG capsule Take 40 mg by mouth daily. Active furosemide (LASIX) 20 MG tablet Take 20 mg by mouth 2 (two) times a day. Active dilTIAZem (CARDIZEM) 30 MG immediate release tablet Take 30 mg by mouth 4 (four) times a day. Active Ca cit-D3-mag#11-z zqu-wgfq-ioj-brigido r (CALTRATE 600+D) 600 mg calcium- 800 unit-50 mg Tab Take 1 tablet by mouth daily. Active buPROPion (WELLBUTRIN XL) 150 MG ER 24 hr tablet Take 450 mg by mouth daily. Active oxybutynin (DITROPAN-XL) 10 MG 24 hr tablet Take 10 mg by mouth daily. Active alendronate (FOSAMAX) 10 MG tablet Take 10 mg by mouth daily before breakfast. Take in the morning with a full glass of water, on an empty stomach, and do not take anything else by mouth or lie down for the next 30 min. Active atorvastatin (LIPITOR) 40 MG tablet Take 40 mg by mouth daily. Active rosuvastatin (CRESTOR) 40 MG tablet Take 40 mg by mouth daily. Active divalproex (DEPAKOTE ER) 500 MG ER 24 hr tablet Take 1,000 mg by mouth daily. Active ARIPiprazole (ABILIFY) 5 MG tablet Take 5 mg by mouth daily. Active traZODone (DESYREL) 100 MG tablet Take 100 mg by mouth nightly at bedtime. Active mirtazapine (REMERON) 15 MG tablet Take 15 mg by mouth nightly at bedtime. Active Active Problems Problem Noted Date Diagnosed Date HTN (hypertension) 08/26/2021 Social History Tobacco Use Types Packs/Day Years Used Date Smoking Tobacco: Never Assessed Education Answer Date Recorded Are you interested in more education? Not on kwadwo e 07/27/2022 Are you concerned about learning? Not on file 07/27/2022 No 07/27/2022 No 07/27/2022 Digital Access Answer Date Recorded No 08/27/2022 No 08/27/2022 Reliable internet access at home? Not on file 08/27/2022 Device with a working camera? Not on file Comments Unknown Sex and Gender Information Value Date Recorded Sex Assigned at Female 08/26/2021 6:14 PM EDT Legal Sex Female 5:43 PM EDT Gender Identity Female 08/26/2021 6:14 PM EDT Sexual Orientation Not on file Last Filed Vital Signs Vital Sign Reading Time Taken Comments Blood Pressure 133/73 08/26/2021 6:50 PM EDT Pulse 65 08/26/2021 6:12 PM EDT Temperature 36.4 C (97.5 F) 08/26/2021 6:12 PM EDT Respiratory Rate 16 08/26/2021 6:50 PM EDT Oxygen Saturation 95% 08/26/2021 6:12 PM EDT Inhaled Oxygen Concentration - - Weight 99.8 kg (220 lb) 08/26/2021 6:12 PM EDT Height 160 cm (5' 3 ) 08/26/2021 6:12 PM EDT Body Mass Index 38.97 08/26/2021 6:12 PM EDT Plan of Treatment Not on file Medical Devices Not on file Insurance [facility]IC[facility] [place] [facility] UNITED PPO AARP MEDICARE REPLACEMENT [place] [id number] [place] [facility] [facility] [facility]AC[facility] MEDIC[facility] REPLACEMENT Care Teams Front End Wheel Loader Operator Relationship Specialty Start Date End Date Seth Aguila MD [address] [place] [address] [place] [address] PCP - General Internal Medicine 08/26/21 Additional Source Comments The information contained in this document represents components of the legal health record. It is not the complete legal health record.[facility]
== END 2024-11-10 11:25 | disposition home or self-care (01) ==
LOC: HO.HGI 10:01
PROVIDERS: PCP Internal Medicine; Visit Provider Internal Medicine
DX: R13.10 Dysphagia, unspecified (principal); K22.4 Dyskinesia of esophagus
CPT/HCPCS: 99214

== ENCOUNTER → 2024-11-10 10:00 | Outpatient (BNVA) | payer MEDICARE, OTHER, MEDICAID, SELFPAY | PROVIDERS: PCP Internal Medicine; Visit Provider Internal Medicine | DX: K22.4 Dyskinesia of esophagus (principal); R13.10 Dysphagia, unspecified; Z98.890 Other specified postprocedural states | CPT/HCPCS: 99212 ==

== ENCOUNTER 2025-02-09 13:57 | Outpatient (AMB) | payer MEDICARE, OTHER, MEDICAID, SELFPAY ==
--- NOTE | 2025-02-09 14:11 | MHC.OFFVIS ---
Vital Signs 02/09/25 14:15 Height 5 ft 3 in BMI Reason not done Patient refused/unable BP 132/59 L Blood Pressure Location Lt brachial Position Sitting Pulse 51 Intake Visit Reasons: f/u dysphagia Intake Note: January presents in the office as a follow up for her dysphagia. CC: She states that her issues are now with her stomach - she states that she wakes up every day. She states that when she does not feel good she is not able to eat as well. Rubber Gasket Inspector Trimmer Required: No Allergies codeine Allergy (Intermediate, Verified 11/10/24 10:12) itching HPI Comments Details: 73 y.o F with PMH of who is here for GI sx as below. Accompanied by ex- and son. Pt reports persistent nausea for the past 4-5 years assoc with low appetite and early satiety. Pt also reports occ vomiting which is non bloody and non bilious. Has lost almost 40 lbs in the last year. This is corroborated in [place] as well (20 lbs weight loss since July 2023) Pt has been afraid of seeing a provider for this due to fear tube in mouth . Was eventually seen in ER earlier this year - CT Abd/pel suggestive of esophagitis. Images not available for review. Of note - HR noted to be erratic and low on exam today. Last colo 2016 at [facility]. Does not think had polyps. 08/10/24: Barium swallow 1. Patulous, tortuous esophagus with moderately disordered esophageal peristalsis. Granular mucosal pattern likely representing esophagitis. 2. Episodic gastroesophageal reflux observed during the examination to the level of the aortic arch. 3. Findings of the stomach of granular mucosal pattern with thickening of the areae gastricae, and numerous small foci of contrast pooling suggesting submucosal ulceration. Findings suggest erosive gastritis. 4. Limited assessment for hiatus hernia. There may be a small type I hernia present. 10/08/24: Esophageal spasms Normal esophageal mucosa (biopsy) Gastritis (biopsy) Normal duodenum A. Stomach, antrum, biopsy: Antral-type mucosa with mild chronic inactive inflammation; no Helicobacter organisms seen. B. Stomach, body, biopsy: Oxyntic mucosa with mild chronic inactive inflammation; no Helicobacter organisms seen. C. Esophagus, lower, biopsy: Squamous epithelium within normal limits; no inflammation seen. D. Esophagus, middle, biopsy: Squamous epithelium within normal limits; no inflammation seen 11/10/24: Here for follow up after EGD. Accompanied by her . Seated in wheelchair. EGD and bx results reviewed. Obv continues to have dysphagia, melba to pills. Reviewed largely due to dysmotility. Also notices early satiety and bloating after eating and decreased stool frequency 3 times a week. 02/09/25: Here for follow up to review response from motegrity hwoever pt says she wasnt sure what it was for so she only started taking it 3-4 days ago. So far no side effects including abd pain, diarrhea. Does report bloating but agrees its probably too early to notice any response from the med. Pt also smokes marijuana and we reviewed that aerophagia is likely making abd bloating and distention worse. Can try edibles if she is interested. [facility] Medical History (Updated 02/09/25 @ 14:48 by Suzanna Hester MD) Heartburn Dysphagia Anxiety Depression Bradycardia Surgical History (Updated 11/10/24 @ 10:12 by AFRICA Millard) History of esophagogastroduodenoscopy (EGD) H/O hand surgery Hx of tonsillectomy Total knee replacement status History of lung surgery History of excision of pilonidal cyst Family History Other FH: mental illness Substance use Social History Housing: House Are you a primary care management coordinator to a significant other at home: No Do you presently have visiting nurse or other home services: No Alcohol intake: never Patient Tobacco Use Status: Former Tobacco user Cigarette Packs Per Day: 1 Years Smoked: 4 e-Cigarette/Vaping Use: Never Used Second Hand Smoke Exposure: No Substance Use Type: Marijuana service: No Current occupational status: retired Cognitive needs: No Hearing needs: No Vision needs: Yes Review of Systems Const All systems reviewed & are unremarkable except as noted in HPI and below Physical Exam Exam Exam: No apparent distress Nonicteric Abdomen soft, nondistended Alert and oriented x3, seated in wheelchair Vital Signs: Last Vital Signs Pulse 51 02/09/25 14:15 BP 132/59 L 02/09/25 14:15 Assessment & Plan Assessment & Plan (1) Esophageal dysmotility: Code(s): K22.4 - Dyskinesia of esophagus Category: Medical (2) Chronic idiopathic constipation: Code(s): K59.04 - Chronic idiopathic constipation Category: Medical (3) Dyspepsia: Code(s): R10.13 - Epigastric pain Category: Medical Plan Reviewed with the pt that dysphagia likely 2/2 dysmotiltoy. no stricture or EoE noted. She was given motegrity at last visit which she only started taking a few days ago. So far has not had any adverse effects. Advised to cont this once daily. Follow up 8 weeks to review response and determine need for dose adjustment. Plan: - Motegrity 1 mg trial once daily - Cont famotidine (hx of osteoporosis so avoiding ppi) - If persistent sx, will send for MBS and ST eval - Depending on those, may eventually need HREM Follow up 8 weeks Medications: Discontinued omeprazole Discontinued Reason: Doctor's Order 20 mg PO DAILY 90 caps 1RF Coding Level of Care Code Est Pt Level 3 (19640) Diagnoses Esophageal dysmotility K22.4 Chronic idiopathic constipation K59.04 Dyspepsia R10.13
[2025-02-09 14:15] VITALS: BP 132/59; PULSE 51
--- OUTSIDE RECORDS SUMMARY | 2025-02-09 17:09 | XMS_ITS | Clinical Summary ---
Author Organization [facility] Address [address] [address] Phone Care Team Providers Care Data Collection Interviewer Name Role Phone Seth Aguila MD Primary Care Provider [phone] Allergies Active Allergy Reactions Criticality Noted Date Comments Codeine Itching 08/26/2021 Medications omeprazole (PRILOSEC) 40 MG capsule Take 40 mg by mouth daily. Active furosemide (LASIX) 20 MG tablet Take 20 mg by mouth 2 (two) times a day. Active dilTIAZem (CARDIZEM) 30 MG immediate release tablet Take 30 mg by mouth 4 (four) times a day. Active Ca cit-D3-mag#11-z bms-fdij-pvs-brigido r (CALTRATE 600+D) 600 mg calcium- 800 [...] file Medical Devices Not on file Insurance [facility] [place] [facility] AARP MEDICARE REPLACEMENT [place] [id number] [place] [facility] [place] [facility] [place] [facility] Care Teams Data Collection Interviewer Relationship Specialty Start Date End Date Seth Aguila MD [address] [place] [address] [place] [address] PCP - General Internal Medicine 08/26/21 Additional Source Comments The information contained in this document represents components of the legal health record. It is not the complete legal health record.[facility]
== END 2025-02-09 14:47 | disposition home or self-care (01) ==
LOC: HO.HGI 13:58
PROVIDERS: PCP Internal Medicine; Visit Provider Internal Medicine
DX: K22.4 Dyskinesia of esophagus (principal); K59.04 Chronic idiopathic constipation; R10.13 Epigastric pain
CPT/HCPCS: 99213

== ENCOUNTER → 2025-02-09 13:57 | Outpatient (BNVA) | payer MEDICARE, OTHER, MEDICAID, SELFPAY | PROVIDERS: PCP Internal Medicine; Visit Provider Internal Medicine | DX: K22.4 Dyskinesia of esophagus (principal); K59.04 Chronic idiopathic constipation; R10.13 Epigastric pain; Z87.891 Personal history of nicotine dependence | CPT/HCPCS: 99212 ==